=== PATIENT | female | born 1945 | race Caucasian/White ===

== ENCOUNTER 2021-11-18 21:23 | Inpatient (IN) ==
[2021-11-19] MEDS ORDERED: Isovue-370 500 ML BOTTLE IVP ONE (02:32)
[2021-11-19] MEDS ORDERED: Naloxone 0.4 MG/ML INJ IVP PRN (02:36)
[2021-11-19] MEDS ORDERED: *HR* Promethazine 25 MG/ML VIAL IM PRN (02:36)
[2021-11-19] MEDS ORDERED: Ondansetron 4 MG/2 ML VIAL IVP PRN (02:36)
[2021-11-19 03:00] LABS: Basophils % 0.3 %; Hematocrit 36.5 % (35.3-44.9); Hemoglobin 11.7 g/dL (11.5-15.4); Immature Granulocytes % 0.3 % (0-4); Lymphocytes # 1.3 K/mcL (0.6-4.6); Lymphocytes % 19.6 %; Mean Corpuscular HGB Conc 32.1 g/dL (31.6-35.5); Mean Corpuscular Hemoglobin 26.8 pg (28.0-33.3); Mean Corpuscular Volume 83.7 fL (83.0-100.0); Mean Platelet Volume 10.3 fL (9.4-12.4); Monocytes # 0.7 K/mcL (0.0-1.3); Monocytes % 10.4 %; Neutrophils # 4.6 K/mcL (1.6-8.9); Platelet Count 165 K/mcL (140-400); Red Blood Count 4.36 M/mcL (3.82-4.97); Red Cell Distribution Width 15.8 % (11.5-14.5); Segmented Neutrophils % 69.4 %; White Blood Count 6.6 K/mcL (4.3-11.1)
[2021-11-19] MEDS ORDERED: Perflutren Lipid Microsphere 1.3 ML in 0.9 % Sodium Chloride 8.7 ML IVP PRN (03:05)
[2021-11-19 03:07] LABS: INR 1.2; Prothrombin Time 13.2 Seconds (9.4-12.1)
[2021-11-19 03:09] LABS: VBG HCO3 30 mEq/L (21-27); VBG PCO2 53 mmHg (41-51); VBG PH 7.36 pH Units (7.32-7.42); VBG PO2 29 mmHg (25-50)
[2021-11-19 03:17] LABS: Albumin 3.4 g/dL (3.5-5.7); Albumin/Globulin Ratio 1.5 (1.1-2.2); Bilirubin,Total 0.3 mg/dL (0.3-1.0); Calcium 7.9 mg/dL (8.6-10.3); Globulin 2.2 g/dL (2.4-3.5); Magnesium 1.5 mg/dL (1.6-2.6); Phosphorous 3.3 mg/dL (2.7-4.5); Potassium 3.5 mEq/L (3.5-5.1); Total Protein 5.6 g/dL (6.4-8.9)
[2021-11-19 03:42] LABS: Troponin I 0.03 ng/mL (< 0.04)
[2021-11-19] MEDS: Ringers Solution, Lactated 1,000 ML IVC SCH ×2 (03:57→15:23)
[2021-11-19] MEDS: *HR* Enoxaparin 40 MG/0.4 ML SYRINGE SQ SCH (04:37)
[2021-11-19] MEDS ORDERED: Ropivacaine/PF 0.5% 49.24 ML, EPINEPHrine 0.5 MG, cloNIDine 0.08 MG, 0.9 % Sodium Chlor... INTRAART ONE (07:30)
[2021-11-19] MEDS ORDERED: Povidone-Iodine 45 ML, Sodium Chloride IRRigation 1,000 ML IR ONE (07:30)
[2021-11-19] MEDS ORDERED: Dexamethasone Sodium Phos/PF 10 MG/ML VIAL IVP SCH (09:00)
[2021-11-19 10:49] LABS: Bilirubin,Urine Negative (Negative); Blood,Urine Trace (Negative); Clarity,Urine Clear (Clear); Color,Urine Colorless (Yellow); Glucose,Urine (UA) Normal (Normal); Ketones,Urine 20 mg/dL (Negative); Leukocyte Esterase,Urine Negative (Negative); Nitrite,Urine Negative (Negative); Protein,Urine Trace mg/dL (Neg-Trace); Specific Gravity,Urine 1.018 (1.010-1.025); Urobilinogen,Urine Normal (Normal); WBC,Urine 0-3 per hpf (0-3)
[2021-11-19] MEDS ORDERED: *HR* Labetalol 20 MG/4 ML SYRINGE IVP PRN (13:02)
[2021-11-19] MEDS: amLODIPine 5 MG TABLET PO SCH (15:42)
[2021-11-19] MEDS: Ipratropium 1 PUFF INHALER IH SCH ×4 (15:55→23:59)
[2021-11-19] MEDS: cilostazoL 100 MG TABLET PO SCH (21:35)
[2021-11-19] MEDS ORDERED: Budesonide/Formoterol 160/4.5 1 PUFF INH IH SCH (22:00)
[2021-11-19] MEDS: Budesonide/Formoterol 80/4.5 1 PUFF INH IH SCH (22:36)
[2021-11-19] MEDS: Acetaminophen 325 MG TABLET PO PRN (23:07)
[2021-11-20 03:07] LABS: Alanine Aminotransferase 14 Units/L (7-52); Albumin 3.8 g/dL (3.5-5.7); Albumin/Globulin Ratio 1.4 (1.1-2.2); Alkaline Phosphatase 39 Units/L (34-104); Aspartate Amino Transferase 22 Units/L (13-39); BUN/Creatinine Ratio 20 (6-26); Bilirubin,Total 0.5 mg/dL (0.3-1.0); Blood Urea Nitrogen 15 mg/dL (8-23); C-Reactive Protein 79 mg/L (Less than 10); Calcium 8.8 mg/dL (8.6-10.3); Carbon Dioxide 26 mEq/L (23-29); Chloride 104 mEq/L (98-107); Globulin 2.8 g/dL (2.4-3.5); Glucose 166 mg/dL (70-105); Lactate Dehydrogenase 236 Units/L (140-271); Magnesium 1.6 mg/dL (1.6-2.6); Osmolality,Calculated 291 (280-300); Potassium 2.8 mEq/L (3.5-5.1); Sodium 138 mEq/L (136-145); Total Protein 6.6 g/dL (6.4-8.9); eGFR For African Americans > 60 (> 60); eGFR For Non-African Americans > 60 (> 60)
[2021-11-20 03:15] LABS: Ferritin 66 ng/mL (10-120)
[2021-11-20] MEDS: Ipratropium 1 PUFF INHALER IH SCH ×5 (04:27→19:54)
[2021-11-20] MEDS: *HR* Enoxaparin 40 MG/0.4 ML SYRINGE SQ SCH (05:03)
[2021-11-20] MEDS: Ringers Solution, Lactated 1,000 ML IVC SCH (05:03)
[2021-11-20 05:41] LABS: Hematocrit 40.8 % (35.3-44.9); Hemoglobin 13.7 g/dL (11.5-15.4); Immature Granulocytes % 0.4 % (0-4); Lymphocytes % 9.3 %; Mean Corpuscular HGB Conc 33.6 g/dL (31.6-35.5); Mean Corpuscular Hemoglobin 27.2 pg (28.0-33.3); Mean Corpuscular Volume 81.1 fL (83.0-100.0); Mean Platelet Volume 10.8 fL (9.4-12.4); Monocytes # 0.9 K/mcL (0.0-1.3); Monocytes % 8.5 %; Neutrophils # 8.8 K/mcL (1.6-8.9); Platelet Count 172 K/mcL (140-400); Red Blood Count 5.03 M/mcL (3.82-4.97); Red Cell Distribution Width 15.4 % (11.5-14.5); Segmented Neutrophils % 81.8 %; White Blood Count 10.8 K/mcL (4.3-11.1)
[2021-11-20] MEDS ORDERED: Isovue-370 500 ML BOTTLE IVP ONE (07:21)
[2021-11-20] MEDS: Budesonide/Formoterol 80/4.5 1 PUFF INH IH SCH ×2 (07:56→19:55)
[2021-11-20] MEDS: cilostazoL 100 MG TABLET PO SCH ×2 (08:16→21:02)
[2021-11-20] MEDS: amLODIPine 5 MG TABLET PO SCH (08:20)
[2021-11-20] MEDS ORDERED: amLODIPine 5 MG TABLET PO ONE (08:37)
[2021-11-20] MEDS ORDERED: amLODIPine 5 MG TABLET PO SCH (09:00)
[2021-11-20] MEDS ORDERED: Remdesivir 200 MG in 0.9 % Sodium Chloride 100 ML IVPB ONE (10:00)
[2021-11-20 14:52] LABS: Adenovirus F 40/41 PCR Not detected (Not detect); Astrovirus PCR Not detected (Not detect); C.difficile Toxin A/B Gene PCR Not detected (Not detect); Campylobacter by PCR Not detected (Not detect); Cryptosporidium by PCR Not detected (Not detect); Cyclospora cayetanensis PCR Not detected (Not detect); E. coli O157 by PCR Not detected (Not detect); Entamoeba histolytica PCR Not detected (Not detect); Enteroaggregative E.coli(EAEC) Not detected (Not detect); Enteropathogenic E.coli(EPEC) Not detected (Not detect); Enterotoxigenic E.coli (ETEC) Not detected (Not detect); Giardia lamblia PCR Not detected (Not detect); Norovirus GI/GII PCR Not detected (Not detect); Plesiomonas shigelloides PCR Not detected (Not detect); Rotavirus A PCR Not detected (Not detect); Salmonella PCR Not detected (Not detect); Sapovirus PCR Not detected (Not detect); Shig/EnteroinvasiveE coli EIEC Not detected (Not detect); Shigalike tox-prod E coli STEC Not detected (Not detect); Vibrio PCR Not detected (Not detect); Vibrio cholerae PCR Not detected (Not detect); Yersinia enterocolitica PCR Not detected (Not detect)
[2021-11-20] MEDS: Gabapentin 300 MG CAPSULE PO SCH ×2 (15:07→21:03)
[2021-11-20] MEDS ORDERED: CILOSTAZOL 50 MG PO SCH (21:00)
[2021-11-20] MEDS: *HR* HYDROcodone/Acet 10/325 mg TABLET PO PRN (23:58)
[2021-11-21] MEDS: Ipratropium 1 PUFF INHALER IH SCH ×6 (00:21→20:04)
[2021-11-21 01:27] LABS: Basophils % 0.1 %; Hematocrit 39.6 % (35.3-44.9); Hemoglobin 13.3 g/dL (11.5-15.4); Immature Granulocytes % 0.7 % (0-4); Lymphocytes # 0.8 K/mcL (0.6-4.6); Lymphocytes % 6.5 %; Mean Corpuscular HGB Conc 33.6 g/dL (31.6-35.5); Mean Corpuscular Hemoglobin 27.2 pg (28.0-33.3); Mean Platelet Volume 11.2 fL (9.4-12.4); Monocytes # 0.9 K/mcL (0.0-1.3); Monocytes % 7.4 %; Neutrophils # 10.8 K/mcL (1.6-8.9); Platelet Count 188 K/mcL (140-400); Red Blood Count 4.89 M/mcL (3.82-4.97); Red Cell Distribution Width 15.5 % (11.5-14.5); Segmented Neutrophils % 85.3 %; White Blood Count 12.7 K/mcL (4.3-11.1)
[2021-11-21 01:46] LABS: Alanine Aminotransferase 17 Units/L (7-52); Albumin 3.7 g/dL (3.5-5.7); Albumin/Globulin Ratio 1.4 (1.1-2.2); Alkaline Phosphatase 37 Units/L (34-104); Aspartate Amino Transferase 23 Units/L (13-39); BUN/Creatinine Ratio 23 (6-26); Bilirubin,Total 0.5 mg/dL (0.3-1.0); Blood Urea Nitrogen 17 mg/dL (8-23); Calcium 8.7 mg/dL (8.6-10.3); Carbon Dioxide 27 mEq/L (23-29); Chloride 103 mEq/L (98-107); Globulin 2.6 g/dL (2.4-3.5); Glucose 129 mg/dL (70-105); Osmolality,Calculated 287 (280-300); Potassium 2.9 mEq/L (3.5-5.1); Sodium 137 mEq/L (136-145); Total Protein 6.3 g/dL (6.4-8.9); eGFR For African Americans > 60 (> 60); eGFR For Non-African Americans > 60 (> 60)
[2021-11-21] MEDS: *HR* Enoxaparin 40 MG/0.4 ML SYRINGE SQ SCH (05:18)
[2021-11-21] MEDS: cilostazoL 100 MG TABLET PO SCH ×2 (07:30→21:16)
[2021-11-21] MEDS: Gabapentin 300 MG CAPSULE PO SCH ×3 (07:30→21:16)
[2021-11-21] MEDS: amLODIPine 5 MG TABLET PO SCH (07:32)
[2021-11-21] MEDS ORDERED: Magnesium Sulfate 1 GM/102 ML PIGGYBACK IVPB ONE (07:51)
[2021-11-21] MEDS: *HR* HYDROcodone/Acet 10/325 mg TABLET PO PRN (08:00)
[2021-11-21] MEDS: hydroCHLOROthiazide 25 MG TABLET PO SCH (08:14)
[2021-11-21] MEDS: Remdesivir 100 MG in 0.9 % Sodium Chloride 100 ML IVPB SCH (09:47)
[2021-11-21] MEDS: *HR* OxyCODONE Immed Rel 5 MG TABLET PO PRN ×2 (10:46→21:20)
[2021-11-21] MEDS: Fluticasone Propionate Nasal 50 MCG/SPRAY BOTTLE NS SCH (11:12)
[2021-11-21] MEDS: Budesonide/Formoterol 80/4.5 1 PUFF INH IH SCH ×2 (11:45→20:04)
[2021-11-21] MEDS: traZODone 50 MG TABLET PO PRN (21:20)
[2021-11-22] MEDS: Ipratropium 1 PUFF INHALER IH SCH ×7 (00:05→23:36)
[2021-11-22] MEDS: *HR* OxyCODONE Immed Rel 5 MG TABLET PO PRN ×3 (05:43→20:10)
[2021-11-22] MEDS: *HR* Enoxaparin 40 MG/0.4 ML SYRINGE SQ SCH (05:44)
[2021-11-22 06:30] LABS: Basophils % 0.2 %; Hematocrit 37.9 % (35.3-44.9); Hemoglobin 12.1 g/dL (11.5-15.4); Immature Granulocytes % 0.7 % (0-4); Lymphocytes # 0.8 K/mcL (0.6-4.6); Lymphocytes % 6.8 %; Mean Corpuscular HGB Conc 31.9 g/dL (31.6-35.5); Mean Corpuscular Hemoglobin 26.5 pg (28.0-33.3); Mean Corpuscular Volume 82.9 fL (83.0-100.0); Mean Platelet Volume 11.3 fL (9.4-12.4); Monocytes # 1.2 K/mcL (0.0-1.3); Monocytes % 9.4 %; Neutrophils # 10.3 K/mcL (1.6-8.9); Platelet Count 181 K/mcL (140-400); Red Blood Count 4.57 M/mcL (3.82-4.97); Red Cell Distribution Width 15.9 % (11.5-14.5); Segmented Neutrophils % 82.9 %; White Blood Count 12.4 K/mcL (4.3-11.1)
[2021-11-22 07:03] LABS: Alanine Aminotransferase 15 Units/L (7-52); Albumin 3.6 g/dL (3.5-5.7); Albumin/Globulin Ratio 1.4 (1.1-2.2); Alkaline Phosphatase 38 Units/L (34-104); Aspartate Amino Transferase 21 Units/L (13-39); BUN/Creatinine Ratio 26 (6-26); Bilirubin,Total 0.4 mg/dL (0.3-1.0); Blood Urea Nitrogen 23 mg/dL (8-23); Calcium 8.8 mg/dL (8.6-10.3); Carbon Dioxide 26 mEq/L (23-29); Chloride 105 mEq/L (98-107); Globulin 2.5 g/dL (2.4-3.5); Glucose 155 mg/dL (70-105); Osmolality,Calculated 297 (280-300); Sodium 140 mEq/L (136-145); Total Protein 6.1 g/dL (6.4-8.9); eGFR For African Americans > 60 (> 60); eGFR For Non-African Americans > 60 (> 60)
[2021-11-22] MEDS: Budesonide/Formoterol 80/4.5 1 PUFF INH IH SCH ×2 (08:30→20:25)
[2021-11-22] MEDS: hydroCHLOROthiazide 25 MG TABLET PO SCH (09:52)
[2021-11-22] MEDS: cilostazoL 100 MG TABLET PO SCH ×2 (09:53→20:09)
[2021-11-22] MEDS: Acetaminophen 325 MG TABLET PO PRN (09:53)
[2021-11-22] MEDS: amLODIPine 5 MG TABLET PO SCH (09:54)
[2021-11-22] MEDS: Gabapentin 300 MG CAPSULE PO SCH ×3 (09:54→20:08)
[2021-11-22] MEDS: Fluticasone Propionate Nasal 50 MCG/SPRAY BOTTLE NS SCH (09:55)
[2021-11-22] MEDS: Remdesivir 100 MG in 0.9 % Sodium Chloride 100 ML IVPB SCH (09:56)
[2021-11-23] MEDS: Ipratropium 1 PUFF INHALER IH SCH ×6 (04:08→23:20)
[2021-11-23] MEDS: *HR* OxyCODONE Immed Rel 5 MG TABLET PO PRN ×2 (04:16→20:48)
[2021-11-23 05:10] LABS: Basophils % 0.1 %; Hematocrit 36.4 % (35.3-44.9); Hemoglobin 11.8 g/dL (11.5-15.4); Immature Granulocytes % 0.5 % (0-4); Lymphocytes # 0.8 K/mcL (0.6-4.6); Mean Corpuscular HGB Conc 32.4 g/dL (31.6-35.5); Mean Corpuscular Hemoglobin 26.9 pg (28.0-33.3); Mean Corpuscular Volume 83.1 fL (83.0-100.0); Monocytes # 0.9 K/mcL (0.0-1.3); Monocytes % 7.8 %; Neutrophils # 9.7 K/mcL (1.6-8.9); Platelet Count 187 K/mcL (140-400); Red Blood Count 4.38 M/mcL (3.82-4.97); Red Cell Distribution Width 15.5 % (11.5-14.5); Segmented Neutrophils % 84.6 %; White Blood Count 11.5 K/mcL (4.3-11.1)
[2021-11-23] MEDS: *HR* Enoxaparin 40 MG/0.4 ML SYRINGE SQ SCH (05:15)
[2021-11-23 05:30] LABS: Alanine Aminotransferase 16 Units/L (7-52); Albumin 3.4 g/dL (3.5-5.7); Albumin/Globulin Ratio 1.4 (1.1-2.2); Alkaline Phosphatase 39 Units/L (34-104); Aspartate Amino Transferase 16 Units/L (13-39); BUN/Creatinine Ratio 32 (6-26); Bilirubin,Total 0.4 mg/dL (0.3-1.0); Blood Urea Nitrogen 27 mg/dL (8-23); Calcium 9.1 mg/dL (8.6-10.3); Carbon Dioxide 30 mEq/L (23-29); Chloride 104 mEq/L (98-107); Globulin 2.5 g/dL (2.4-3.5); Glucose 171 mg/dL (70-105); Osmolality,Calculated 299 (280-300); Sodium 140 mEq/L (136-145); Total Protein 5.9 g/dL (6.4-8.9); eGFR For African Americans > 60 (> 60); eGFR For Non-African Americans > 60 (> 60)
[2021-11-23] MEDS: Budesonide/Formoterol 80/4.5 1 PUFF INH IH SCH ×2 (08:05→19:39)
[2021-11-23] MEDS: Fluticasone Propionate Nasal 50 MCG/SPRAY BOTTLE NS SCH (08:32)
[2021-11-23] MEDS: amLODIPine 5 MG TABLET PO SCH (08:32)
[2021-11-23] MEDS: cilostazoL 100 MG TABLET PO SCH ×2 (08:32→20:46)
[2021-11-23] MEDS: Gabapentin 300 MG CAPSULE PO SCH ×3 (08:32→20:47)
[2021-11-23] MEDS: hydroCHLOROthiazide 25 MG TABLET PO SCH (08:32)
[2021-11-23] MEDS: Remdesivir 100 MG in 0.9 % Sodium Chloride 100 ML IVPB SCH (10:56)
[2021-11-23] MEDS ORDERED: Dextrose Gel 15 GM/37.5 ML TUBE PO PRN ×2 (16:56)
[2021-11-23] MEDS ORDERED: *HR* Dextrose 50 % in Water (Syg) 50 ML SYRINGE IVP PRN (16:56)
[2021-11-23] MEDS ORDERED: D5% in Water 1,000 ML IVC PRN (16:56)
[2021-11-23] MEDS: Insulin LISPRO 300 UNITS/3 ML VIAL SUBQ SCH (20:47)
[2021-11-24] MEDS: Ipratropium 1 PUFF INHALER IH SCH ×5 (03:56→20:10)
[2021-11-24 05:43] LABS: Basophils % 0.2 %; Hematocrit 37.7 % (35.3-44.9); Hemoglobin 12.4 g/dL (11.5-15.4); Immature Granulocytes % 0.7 % (0-4); Lymphocytes # 1.2 K/mcL (0.6-4.6); Lymphocytes % 9.8 %; Mean Corpuscular HGB Conc 32.9 g/dL (31.6-35.5); Mean Corpuscular Hemoglobin 26.6 pg (28.0-33.3); Mean Corpuscular Volume 80.7 fL (83.0-100.0); Monocytes # 1.1 K/mcL (0.0-1.3); Monocytes % 9.3 %; Neutrophils # 9.4 K/mcL (1.6-8.9); Platelet Count 214 K/mcL (140-400); Red Blood Count 4.67 M/mcL (3.82-4.97); Red Cell Distribution Width 15.3 % (11.5-14.5); White Blood Count 11.8 K/mcL (4.3-11.1)
[2021-11-24 05:47] LABS: Alanine Aminotransferase 17 Units/L (7-52); Albumin 3.4 g/dL (3.5-5.7); Albumin/Globulin Ratio 1.3 (1.1-2.2); Alkaline Phosphatase 40 Units/L (34-104); Aspartate Amino Transferase 19 Units/L (13-39); BUN/Creatinine Ratio 35 (6-26); Bilirubin,Total 0.5 mg/dL (0.3-1.0); Blood Urea Nitrogen 28 mg/dL (8-23); C-Reactive Protein 20 mg/L (Less than 10); Carbon Dioxide 28 mEq/L (23-29); Chloride 104 mEq/L (98-107); Globulin 2.7 g/dL (2.4-3.5); Glucose 143 mg/dL (70-105); Lactate Dehydrogenase 227 Units/L (140-271); Magnesium 1.3 mg/dL (1.6-2.6); Osmolality,Calculated 298 (280-300); Potassium 3.5 mEq/L (3.5-5.1); Sodium 140 mEq/L (136-145); Total Protein 6.1 g/dL (6.4-8.9); eGFR For African Americans > 60 (> 60); eGFR For Non-African Americans > 60 (> 60)
[2021-11-24] MEDS: *HR* Enoxaparin 40 MG/0.4 ML SYRINGE SQ SCH (05:51)
[2021-11-24 06:05] LABS: Ferritin 59 ng/mL (10-120)
[2021-11-24] MEDS: *HR* OxyCODONE Immed Rel 5 MG TABLET PO PRN ×3 (06:09→21:22)
[2021-11-24] MEDS: Budesonide/Formoterol 80/4.5 1 PUFF INH IH SCH ×2 (08:06→20:10)
[2021-11-24] MEDS: Insulin LISPRO 300 UNITS/3 ML VIAL SUBQ SCH ×4 (08:31→21:21)
[2021-11-24] MEDS: cilostazoL 100 MG TABLET PO SCH ×2 (08:38→21:22)
[2021-11-24] MEDS: Gabapentin 300 MG CAPSULE PO SCH ×3 (08:39→21:22)
[2021-11-24] MEDS: amLODIPine 5 MG TABLET PO SCH (08:39)
[2021-11-24] MEDS: hydroCHLOROthiazide 25 MG TABLET PO SCH (08:39)
[2021-11-24] MEDS: Remdesivir 100 MG in 0.9 % Sodium Chloride 100 ML IVPB SCH (08:39)
[2021-11-24] MEDS: Fluticasone Propionate Nasal 50 MCG/SPRAY BOTTLE NS SCH (08:43)
[2021-11-25] MEDS: Ipratropium 1 PUFF INHALER IH SCH ×7 (00:13→23:19)
[2021-11-25] MEDS: *HR* Enoxaparin 40 MG/0.4 ML SYRINGE SQ SCH ×2 (05:20→05:26)
[2021-11-25 05:53] LABS: Basophils % 0.2 %; Hematocrit 37.4 % (35.3-44.9); Hemoglobin 12.2 g/dL (11.5-15.4); Immature Granulocytes % 0.9 % (0-4); Lymphocytes % 8.8 %; Mean Corpuscular HGB Conc 32.6 g/dL (31.6-35.5); Mean Corpuscular Hemoglobin 26.3 pg (28.0-33.3); Mean Corpuscular Volume 80.6 fL (83.0-100.0); Mean Platelet Volume 11.6 fL (9.4-12.4); Monocytes # 1.1 K/mcL (0.0-1.3); Monocytes % 10.3 %; Neutrophils # 8.6 K/mcL (1.6-8.9); Platelet Count 241 K/mcL (140-400); Red Blood Count 4.64 M/mcL (3.82-4.97); Red Cell Distribution Width 15.1 % (11.5-14.5); Segmented Neutrophils % 79.8 %; White Blood Count 10.8 K/mcL (4.3-11.1)
[2021-11-25 06:03] LABS: Estimated Average Glucose 157 mg/dl; Hemoglobin A1C 7.1 %
[2021-11-25 06:36] LABS: Alanine Aminotransferase 24 Units/L (7-52); Albumin 3.4 g/dL (3.5-5.7); Albumin/Globulin Ratio 1.3 (1.1-2.2); Alkaline Phosphatase 44 Units/L (34-104); Aspartate Amino Transferase 19 Units/L (13-39); BUN/Creatinine Ratio 33 (6-26); Bilirubin,Total 0.5 mg/dL (0.3-1.0); Blood Urea Nitrogen 29 mg/dL (8-23); Carbon Dioxide 31 mEq/L (23-29); Chloride 99 mEq/L (98-107); Globulin 2.6 g/dL (2.4-3.5); Glucose 176 mg/dL (70-105); Osmolality,Calculated 294 (280-300); Potassium 3.6 mEq/L (3.5-5.1); Sodium 137 mEq/L (136-145); eGFR For African Americans > 60 (> 60); eGFR For Non-African Americans > 60 (> 60)
[2021-11-25] MEDS: Budesonide/Formoterol 80/4.5 1 PUFF INH IH SCH ×2 (07:41→19:59)
[2021-11-25] MEDS: Insulin LISPRO 300 UNITS/3 ML VIAL SUBQ SCH ×4 (09:38→20:18)
[2021-11-25] MEDS: Gabapentin 300 MG CAPSULE PO SCH ×3 (09:38→20:18)
[2021-11-25] MEDS: *HR* OxyCODONE Immed Rel 5 MG TABLET PO PRN (09:38)
[2021-11-25] MEDS: Fluticasone Propionate Nasal 50 MCG/SPRAY BOTTLE NS SCH (09:38)
[2021-11-25] MEDS: hydroCHLOROthiazide 25 MG TABLET PO SCH (09:38)
[2021-11-25] MEDS: cilostazoL 100 MG TABLET PO SCH ×2 (09:39→20:17)
[2021-11-25] MEDS: amLODIPine 5 MG TABLET PO SCH (09:39)
[2021-11-26 02:16] LABS: Basophils % 0.3 %; Hematocrit 39.6 % (35.3-44.9); Hemoglobin 12.6 g/dL (11.5-15.4); Immature Granulocytes % 1.3 % (0-4); Lymphocytes # 0.7 K/mcL (0.6-4.6); Lymphocytes % 6.2 %; Mean Corpuscular HGB Conc 31.8 g/dL (31.6-35.5); Mean Corpuscular Volume 81.8 fL (83.0-100.0); Mean Platelet Volume 11.1 fL (9.4-12.4); Monocytes # 1.3 K/mcL (0.0-1.3); Monocytes % 10.6 %; Neutrophils # 9.8 K/mcL (1.6-8.9); Platelet Count 274 K/mcL (140-400); Red Blood Count 4.84 M/mcL (3.82-4.97); Red Cell Distribution Width 15.2 % (11.5-14.5); Segmented Neutrophils % 81.6 %
[2021-11-26 02:30] LABS: BUN/Creatinine Ratio 30 (6-26); Blood Urea Nitrogen 30 mg/dL (8-23); Carbon Dioxide 30 mEq/L (23-29); Chloride 101 mEq/L (98-107); Glucose 184 mg/dL (70-105); Osmolality,Calculated 297 (280-300); Potassium 3.7 mEq/L (3.5-5.1); Sodium 138 mEq/L (136-145); eGFR For African Americans > 60 (> 60); eGFR For Non-African Americans 55 (> 60)
[2021-11-26] MEDS: Ipratropium 1 PUFF INHALER IH SCH ×5 (04:15→20:36)
[2021-11-26] MEDS: *HR* Enoxaparin 40 MG/0.4 ML SYRINGE SQ SCH (05:45)
[2021-11-26] MEDS: Budesonide/Formoterol 80/4.5 1 PUFF INH IH SCH ×2 (07:40→20:37)
[2021-11-26] MEDS: Gabapentin 300 MG CAPSULE PO SCH ×3 (08:03→20:05)
[2021-11-26] MEDS: cilostazoL 100 MG TABLET PO SCH ×2 (08:03→20:06)
[2021-11-26] MEDS: amLODIPine 5 MG TABLET PO SCH (08:03)
[2021-11-26] MEDS: *HR* OxyCODONE Immed Rel 5 MG TABLET PO PRN (08:03)
[2021-11-26] MEDS: hydroCHLOROthiazide 25 MG TABLET PO SCH (08:03)
[2021-11-26] MEDS: Fluticasone Propionate Nasal 50 MCG/SPRAY BOTTLE NS SCH (08:04)
[2021-11-26] MEDS: Insulin LISPRO 300 UNITS/3 ML VIAL SUBQ SCH ×4 (08:04→20:07)
[2021-11-26] MEDS ORDERED: *HR* OxyCODONE Immed Rel 5 MG TABLET PO ONE (12:24)
[2021-11-26] MEDS: *HR* HYDROcodone/Acet 10/325 mg TABLET PO PRN (18:14)
[2021-11-26] MEDS: Ringers Solution, Lactated 1,000 ML IVC SCH (18:14)
[2021-11-27] MEDS: Ipratropium 1 PUFF INHALER IH SCH ×6 (00:10→21:06)
[2021-11-27] MEDS: *HR* HYDROcodone/Acet 10/325 mg TABLET PO PRN ×3 (00:53→21:43)
[2021-11-27 04:45] LABS: Basophils % 0.3 %; Eosinophils % 0.1 %; Hematocrit 36.9 % (35.3-44.9); Hemoglobin 11.7 g/dL (11.5-15.4); Immature Granulocytes % 1.4 % (0-4); Lymphocytes % 9.2 %; Mean Corpuscular HGB Conc 31.7 g/dL (31.6-35.5); Mean Corpuscular Hemoglobin 26.2 pg (28.0-33.3); Mean Corpuscular Volume 82.6 fL (83.0-100.0); Mean Platelet Volume 11.5 fL (9.4-12.4); Monocytes # 1.2 K/mcL (0.0-1.3); Monocytes % 11.6 %; Neutrophils # 8.2 K/mcL (1.6-8.9); Platelet Count 292 K/mcL (140-400); Red Blood Count 4.47 M/mcL (3.82-4.97); Red Cell Distribution Width 15.4 % (11.5-14.5); Segmented Neutrophils % 77.4 %; White Blood Count 10.6 K/mcL (4.3-11.1)
[2021-11-27 05:08] LABS: Alanine Aminotransferase 21 Units/L (7-52); Albumin 3.2 g/dL (3.5-5.7); Albumin/Globulin Ratio 1.4 (1.1-2.2); Alkaline Phosphatase 46 Units/L (34-104); Aspartate Amino Transferase 14 Units/L (13-39); BUN/Creatinine Ratio 35 (6-26); Bilirubin,Total 0.4 mg/dL (0.3-1.0); Blood Urea Nitrogen 34 mg/dL (8-23); Calcium 8.8 mg/dL (8.6-10.3); Carbon Dioxide 29 mEq/L (23-29); Chloride 101 mEq/L (98-107); Globulin 2.3 g/dL (2.4-3.5); Glucose 263 mg/dL (70-105); Osmolality,Calculated 301 (280-300); Sodium 137 mEq/L (136-145); Total Protein 5.5 g/dL (6.4-8.9); eGFR For African Americans > 60 (> 60); eGFR For Non-African Americans 57 (> 60)
[2021-11-27] MEDS: *HR* Enoxaparin 40 MG/0.4 ML SYRINGE SQ SCH (05:31)
[2021-11-27] MEDS ORDERED: TOTAL JOINT MIXTURE (100ML) INTRAART ONE (06:00)
[2021-11-27] MEDS ORDERED: Povidone-Iodine 45 ML, Sodium Chloride IRRigation 1,000 ML IR ONE (06:00)
[2021-11-27] MEDS: Ringers Solution, Lactated 1,000 ML IVC SCH ×2 (06:25→15:41)
[2021-11-27] MEDS: Budesonide/Formoterol 80/4.5 1 PUFF INH IH SCH ×2 (07:21→21:06)
[2021-11-27] MEDS: Insulin LISPRO 300 UNITS/3 ML VIAL SUBQ SCH ×4 (07:37→20:25)
[2021-11-27] MEDS: amLODIPine 5 MG TABLET PO SCH (07:59)
[2021-11-27] MEDS: hydroCHLOROthiazide 25 MG TABLET PO SCH (07:59)
[2021-11-27] MEDS: Gabapentin 300 MG CAPSULE PO SCH ×3 (07:59→20:21)
[2021-11-27] MEDS: cilostazoL 100 MG TABLET PO SCH ×2 (08:01→20:21)
[2021-11-27] MEDS: Fluticasone Propionate Nasal 50 MCG/SPRAY BOTTLE NS SCH (08:02)
[2021-11-27] MEDS ORDERED: *HR* HYDROmorphone PF 0.5 MG/0.5 ML SYRINGE IVP PRN (08:42)
[2021-11-27] MEDS ORDERED: *HR* FentaNYL (PF) 100 MCG/2 ML VIAL IVP PRN (08:42)
[2021-11-27] MEDS ORDERED: Albuterol 2.5 MG/3 ML NEBULIZER IH PRN (08:42)
[2021-11-27] MEDS ORDERED: *HR* FentaNYL (PF) 100 MCG/2 ML VIAL ONE (10:48)
[2021-11-27] MEDS ORDERED: *HR* Propofol 200 MG/20 ML VIAL IVP ONE (10:48)
[2021-11-27] MEDS ORDERED: Lidocaine -MPF 2% 5 ML VIAL ONE (10:50)
[2021-11-27] MEDS ORDERED: Vancomycin 1,000 MG VIAL ONE (10:52)
[2021-11-27] MEDS ORDERED: *HR* Succinylcholine 200 MG/10 ML VIAL IVP ONE (11:14)
[2021-11-27] MEDS ORDERED: Ondansetron 4 MG/2 ML VIAL ONE (11:14)
[2021-11-27] MEDS ORDERED: *HR* Vasopressin 20 UNIT/ML VIAL ONE (11:15)
[2021-11-27] MEDS ORDERED: Albumin Human 5% 25.0 GM/500 ML IV.SOLN ONE (11:15)
[2021-11-27] MEDS ORDERED: Heparin 1,000 UNITS/500 mL 500 ML ONE (11:28)
[2021-11-27] MEDS ORDERED: *HR* Rocuronium Bromide 50 MG/5 ML VIAL ONE (12:45)
[2021-11-27] MEDS ORDERED: *HR* Phenylephrine 10 MG/ML VIAL ONE (12:49)
[2021-11-27] MEDS ORDERED: Acetaminophen IV 1,000 MG/100 ML BAG IVPB ONE (13:07)
[2021-11-27] MEDS ORDERED: Tranexamic Acid 1,000 MG/10 ML VIAL ONE (13:11)
[2021-11-27] MEDS ORDERED: MOM Conc 10 ML UD.LIQ PO PRN (14:01)
[2021-11-27] MEDS ORDERED: Sennosides 8.6 MG TABLET PO PRN (14:01)
[2021-11-27] MEDS: Ascorbic Acid 500 MG TABLET PO SCH (17:07)
[2021-11-27] MEDS: CeFAZolin 2 GM/120 ML BAG IVPB SCH (20:19)
[2021-11-28] MEDS: Ipratropium 1 PUFF INHALER IH SCH ×7 (00:03→19:52)
[2021-11-28] MEDS: Ringers Solution, Lactated 1,000 ML IVC SCH (02:18)
[2021-11-28 03:21] LABS: Basophils % 0.1 %; Immature Granulocytes % 1.3 % (0-4); Lymphocytes # 0.6 K/mcL (0.6-4.6); Lymphocytes % 4.2 %; Mean Corpuscular HGB Conc 31.3 g/dL (31.6-35.5); Mean Corpuscular Hemoglobin 26.4 pg (28.0-33.3); Mean Corpuscular Volume 84.3 fL (83.0-100.0); Mean Platelet Volume 11.6 fL (9.4-12.4); Monocytes # 1.5 K/mcL (0.0-1.3); Monocytes % 11.3 %; Neutrophils # 11.2 K/mcL (1.6-8.9); Platelet Count 270 K/mcL (140-400); Red Blood Count 3.56 M/mcL (3.82-4.97); Red Cell Distribution Width 15.4 % (11.5-14.5); Segmented Neutrophils % 83.1 %; White Blood Count 13.5 K/mcL (4.3-11.1)
[2021-11-28 03:26] LABS: Hemoglobin 9.4 g/dL (11.5-15.4)
[2021-11-28 03:33] LABS: Calcium 8.1 mg/dL (8.6-10.3); Magnesium 1.6 mg/dL (1.6-2.6); Phosphorous 3.7 mg/dL (2.7-4.5)
[2021-11-28] MEDS: CeFAZolin 2 GM/120 ML BAG IVPB SCH (04:00)
[2021-11-28] MEDS: *HR* HYDROcodone/Acet 10/325 mg TABLET PO PRN ×2 (04:01→19:54)
[2021-11-28] MEDS: *HR* Enoxaparin 40 MG/0.4 ML SYRINGE SQ SCH (05:00)
[2021-11-28] MEDS: Budesonide/Formoterol 80/4.5 1 PUFF INH IH SCH ×2 (08:02→19:52)
[2021-11-28] MEDS: Insulin LISPRO 300 UNITS/3 ML VIAL SUBQ SCH ×4 (09:55→21:07)
[2021-11-28] MEDS: Insulin DETEMIR 100 UNIT/ML X5UNITS SUBQ SCH ×2 (09:55→21:37)
[2021-11-28] MEDS: Gabapentin 300 MG CAPSULE PO SCH ×3 (09:57→19:55)
[2021-11-28] MEDS: amLODIPine 5 MG TABLET PO SCH (09:58)
[2021-11-28] MEDS: Multivit/Ca/Min/Fe/FA 1 TAB TABLET PO SCH (09:58)
[2021-11-28] MEDS: cilostazoL 100 MG TABLET PO SCH ×2 (09:58→19:54)
[2021-11-28] MEDS: hydroCHLOROthiazide 25 MG TABLET PO SCH (10:00)
[2021-11-28] MEDS: Fluticasone Propionate Nasal 50 MCG/SPRAY BOTTLE NS SCH (10:01)
[2021-11-28] MEDS: Ascorbic Acid 500 MG TABLET PO SCH ×2 (10:10→16:48)
[2021-11-28] MEDS: traZODone 50 MG TABLET PO PRN (19:54)
[2021-11-29] MEDS: Ipratropium 1 PUFF INHALER IH SCH ×7 (00:13→23:29)
[2021-11-29 01:21] LABS: Basophils % 0.1 %; Hematocrit 28.5 % (35.3-44.9); Immature Granulocytes % 1.1 % (0-4); Lymphocytes # 1.4 K/mcL (0.6-4.6); Lymphocytes % 8.9 %; Mean Corpuscular HGB Conc 31.6 g/dL (31.6-35.5); Mean Corpuscular Hemoglobin 26.3 pg (28.0-33.3); Mean Corpuscular Volume 83.3 fL (83.0-100.0); Mean Platelet Volume 11.2 fL (9.4-12.4); Monocytes # 1.8 K/mcL (0.0-1.3); Monocytes % 10.9 %; Neutrophils # 12.7 K/mcL (1.6-8.9); Platelet Count 275 K/mcL (140-400); Red Blood Count 3.42 M/mcL (3.82-4.97); Red Cell Distribution Width 15.4 % (11.5-14.5); White Blood Count 16.1 K/mcL (4.3-11.1)
[2021-11-29 01:38] LABS: BUN/Creatinine Ratio 27 (6-26); Blood Urea Nitrogen 29 mg/dL (8-23); Calcium 8.1 mg/dL (8.6-10.3); Carbon Dioxide 31 mEq/L (23-29); Chloride 103 mEq/L (98-107); Glucose 177 mg/dL (70-105); Magnesium 1.5 mg/dL (1.6-2.6); Osmolality,Calculated 298 (280-300); Phosphorous 2.9 mg/dL (2.7-4.5); Potassium 3.8 mEq/L (3.5-5.1); Sodium 139 mEq/L (136-145); eGFR For African Americans > 60 (> 60); eGFR For Non-African Americans 50 (> 60)
[2021-11-29] MEDS: *HR* Enoxaparin 40 MG/0.4 ML SYRINGE SQ SCH (05:06)
[2021-11-29] MEDS: *HR* HYDROcodone/Acet 10/325 mg TABLET PO PRN ×2 (05:06→20:10)
[2021-11-29] MEDS: Budesonide/Formoterol 80/4.5 1 PUFF INH IH SCH ×2 (08:08→19:20)
[2021-11-29] MEDS: hydroCHLOROthiazide 25 MG TABLET PO SCH (09:06)
[2021-11-29] MEDS: Gabapentin 300 MG CAPSULE PO SCH ×3 (09:06→19:59)
[2021-11-29] MEDS: Insulin DETEMIR 100 UNIT/ML X5UNITS SUBQ SCH ×2 (09:07→20:00)
[2021-11-29] MEDS: Ascorbic Acid 500 MG TABLET PO SCH ×2 (09:08→17:36)
[2021-11-29] MEDS: Fluticasone Propionate Nasal 50 MCG/SPRAY BOTTLE NS SCH (09:08)
[2021-11-29] MEDS: Insulin LISPRO 300 UNITS/3 ML VIAL SUBQ SCH ×4 (09:09→20:01)
[2021-11-29] MEDS: cilostazoL 100 MG TABLET PO SCH ×2 (09:10→19:58)
[2021-11-29] MEDS: amLODIPine 5 MG TABLET PO SCH (09:10)
[2021-11-29] MEDS: Multivit/Ca/Min/Fe/FA 1 TAB TABLET PO SCH (09:10)
[2021-11-29] MEDS ORDERED: Acetaminophen 325 MG TABLET PO PRN (11:52)
[2021-11-30] MEDS: Ipratropium 1 PUFF INHALER IH SCH ×6 (03:21→23:27)
[2021-11-30 04:42] LABS: Basophils % 0.2 %; Eosinophils % 0.2 %; Hematocrit 26.7 % (35.3-44.9); Hemoglobin 8.6 g/dL (11.5-15.4); Immature Granulocytes % 1.3 % (0-4); Lymphocytes # 1.6 K/mcL (0.6-4.6); Lymphocytes % 12.7 %; Mean Corpuscular HGB Conc 32.2 g/dL (31.6-35.5); Mean Corpuscular Hemoglobin 26.9 pg (28.0-33.3); Mean Corpuscular Volume 83.4 fL (83.0-100.0); Mean Platelet Volume 11.1 fL (9.4-12.4); Monocytes # 1.4 K/mcL (0.0-1.3); Monocytes % 10.4 %; Neutrophils # 9.8 K/mcL (1.6-8.9); Platelet Count 285 K/mcL (140-400); Red Cell Distribution Width 15.6 % (11.5-14.5); Segmented Neutrophils % 75.2 %
[2021-11-30 04:59] LABS: BUN/Creatinine Ratio 27 (6-26); Blood Urea Nitrogen 25 mg/dL (8-23); Calcium 8.5 mg/dL (8.6-10.3); Carbon Dioxide 30 mEq/L (23-29); Chloride 103 mEq/L (98-107); Glucose 187 mg/dL (70-105); Magnesium 1.7 mg/dL (1.6-2.6); Osmolality,Calculated 293 (280-300); Phosphorous 2.8 mg/dL (2.7-4.5); Potassium 3.6 mEq/L (3.5-5.1); Sodium 137 mEq/L (136-145); eGFR For African Americans > 60 (> 60); eGFR For Non-African Americans 58 (> 60)
[2021-11-30] MEDS: *HR* Enoxaparin 40 MG/0.4 ML SYRINGE SQ SCH (05:22)
[2021-11-30] MEDS: Insulin LISPRO 300 UNITS/3 ML VIAL SUBQ SCH ×4 (07:10→21:23)
[2021-11-30] MEDS: Budesonide/Formoterol 80/4.5 1 PUFF INH IH SCH ×2 (07:53→19:14)
[2021-11-30] MEDS: amLODIPine 5 MG TABLET PO SCH (09:16)
[2021-11-30] MEDS: Multivit/Ca/Min/Fe/FA 1 TAB TABLET PO SCH (09:16)
[2021-11-30] MEDS: Ascorbic Acid 500 MG TABLET PO SCH ×2 (09:16→16:47)
[2021-11-30] MEDS: cilostazoL 100 MG TABLET PO SCH ×2 (09:16→21:24)
[2021-11-30] MEDS: *HR* HYDROcodone/Acet 10/325 mg TABLET PO PRN ×2 (09:17→17:35)
[2021-11-30] MEDS: Gabapentin 300 MG CAPSULE PO SCH ×3 (09:17→21:24)
[2021-11-30] MEDS: hydroCHLOROthiazide 25 MG TABLET PO SCH (09:17)
[2021-11-30] MEDS: Insulin DETEMIR 100 UNIT/ML X5UNITS SUBQ SCH ×2 (09:22→21:23)
[2021-11-30] MEDS: Fluticasone Propionate Nasal 50 MCG/SPRAY BOTTLE NS SCH (09:23)
[2021-11-30] MEDS: traZODone 50 MG TABLET PO PRN (21:24)
[2021-12-01] MEDS: Ipratropium 1 PUFF INHALER IH SCH ×6 (03:33→23:41)
[2021-12-01] MEDS: *HR* Enoxaparin 40 MG/0.4 ML SYRINGE SQ SCH (05:21)
[2021-12-01 06:38] LABS: Basophils % 0.2 %; Eosinophils # 0.1 K/mcL (0.0-0.6); Eosinophils % 0.5 %; Hemoglobin 8.1 g/dL (11.5-15.4); Immature Granulocytes % 0.9 % (0-4); Lymphocytes # 1.5 K/mcL (0.6-4.6); Lymphocytes % 11.8 %; Mean Corpuscular HGB Conc 31.2 g/dL (31.6-35.5); Mean Corpuscular Hemoglobin 26.3 pg (28.0-33.3); Mean Corpuscular Volume 84.4 fL (83.0-100.0); Monocytes # 1.2 K/mcL (0.0-1.3); Monocytes % 9.7 %; Neutrophils # 9.6 K/mcL (1.6-8.9); Platelet Count 278 K/mcL (140-400); Red Blood Count 3.08 M/mcL (3.82-4.97); Red Cell Distribution Width 15.9 % (11.5-14.5); Segmented Neutrophils % 76.9 %; White Blood Count 12.4 K/mcL (4.3-11.1)
[2021-12-01] MEDS: Budesonide/Formoterol 80/4.5 1 PUFF INH IH SCH ×2 (08:07→20:04)
[2021-12-01] MEDS: hydroCHLOROthiazide 25 MG TABLET PO SCH (08:36)
[2021-12-01] MEDS: *HR* HYDROcodone/Acet 10/325 mg TABLET PO PRN (08:36)
[2021-12-01] MEDS: Gabapentin 300 MG CAPSULE PO SCH ×3 (08:36→21:56)
[2021-12-01] MEDS: cilostazoL 100 MG TABLET PO SCH ×2 (08:36→21:56)
[2021-12-01] MEDS: amLODIPine 5 MG TABLET PO SCH (08:36)
[2021-12-01] MEDS: Ascorbic Acid 500 MG TABLET PO SCH ×2 (08:36→16:20)
[2021-12-01] MEDS: Multivit/Ca/Min/Fe/FA 1 TAB TABLET PO SCH (08:37)
[2021-12-01] MEDS: Insulin LISPRO 300 UNITS/3 ML VIAL SUBQ SCH ×4 (08:39→21:56)
[2021-12-01] MEDS: Insulin DETEMIR 100 UNIT/ML X5UNITS SUBQ SCH ×2 (08:42→21:56)
[2021-12-01] MEDS: Fluticasone Propionate Nasal 50 MCG/SPRAY BOTTLE NS SCH (08:44)
[2021-12-01] MEDS ORDERED: Levalbuterol Neb 0.63 MG/3 ML IH PRN (15:39)
[2021-12-01] MEDS ORDERED: carvediloL 6.25 MG TABLET PO SCH (17:00)
[2021-12-01] MEDS: carvediloL 6.25 MG TABLET PO SCH (17:05)
[2021-12-01] MEDS: Apixaban 5 MG TABLET PO SCH (21:55)
[2021-12-02 02:52] LABS: Basophils % 0.1 %; Eosinophils # 0.1 K/mcL (0.0-0.6); Eosinophils % 0.8 %; Hematocrit 24.8 % (35.3-44.9); Lymphocytes # 1.7 K/mcL (0.6-4.6); Lymphocytes % 12.7 %; Mean Corpuscular HGB Conc 32.3 g/dL (31.6-35.5); Mean Corpuscular Hemoglobin 27.3 pg (28.0-33.3); Mean Corpuscular Volume 84.6 fL (83.0-100.0); Mean Platelet Volume 10.7 fL (9.4-12.4); Monocytes # 1.4 K/mcL (0.0-1.3); Monocytes % 10.8 %; Neutrophils # 9.9 K/mcL (1.6-8.9); Platelet Count 286 K/mcL (140-400); Red Blood Count 2.93 M/mcL (3.82-4.97); Red Cell Distribution Width 15.9 % (11.5-14.5); Segmented Neutrophils % 74.6 %; White Blood Count 13.3 K/mcL (4.3-11.1)
[2021-12-02 03:06] LABS: BUN/Creatinine Ratio 27 (6-26); Blood Urea Nitrogen 23 mg/dL (8-23); Calcium 8.4 mg/dL (8.6-10.3); Carbon Dioxide 29 mEq/L (23-29); Chloride 103 mEq/L (98-107); Glucose 157 mg/dL (70-105); Magnesium 1.9 mg/dL (1.6-2.6); Osmolality,Calculated 293 (280-300); Phosphorous 2.7 mg/dL (2.7-4.5); Potassium 3.6 mEq/L (3.5-5.1); Sodium 138 mEq/L (136-145); eGFR For African Americans > 60 (> 60); eGFR For Non-African Americans > 60 (> 60)
[2021-12-02] MEDS: Ipratropium 1 PUFF INHALER IH SCH ×4 (03:53→16:10)
[2021-12-02] MEDS: Insulin LISPRO 300 UNITS/3 ML VIAL SUBQ SCH ×3 (07:33→16:31)
[2021-12-02] MEDS: Budesonide/Formoterol 80/4.5 1 PUFF INH IH SCH (07:52)
[2021-12-02] MEDS: amLODIPine 5 MG TABLET PO SCH (08:26)
[2021-12-02] MEDS: Ascorbic Acid 500 MG TABLET PO SCH (08:26)
[2021-12-02] MEDS: hydroCHLOROthiazide 25 MG TABLET PO SCH (08:27)
[2021-12-02] MEDS: Gabapentin 300 MG CAPSULE PO SCH ×2 (08:27→15:11)
[2021-12-02] MEDS: Apixaban 5 MG TABLET PO SCH (08:27)
[2021-12-02] MEDS: cilostazoL 100 MG TABLET PO SCH (08:28)
[2021-12-02] MEDS: carvediloL 6.25 MG TABLET PO SCH (08:28)
[2021-12-02] MEDS: Multivit/Ca/Min/Fe/FA 1 TAB TABLET PO SCH (08:28)
[2021-12-02] MEDS: Fluticasone Propionate Nasal 50 MCG/SPRAY BOTTLE NS SCH (08:29)
[2021-12-02] MEDS: Insulin DETEMIR 100 UNIT/ML X5UNITS SUBQ SCH (08:37)
[2021-12-02] MEDS: *HR* HYDROcodone/Acet 10/325 mg TABLET PO PRN (10:20)
[2021-12-02 11:58] VITALS: BP 92/52; PULSE 78; TEMP 98.7; O2SAT 97
== END 2021-12-02 17:10 | DRG 521 ==
LOC: 4WAOSI → SUATTDRO 11-19 02:37 → 2ANU 11-19 12:21
PROVIDERS: ADMIT Internal Medicine; ATTEND Internal Medicine

== ENCOUNTER 2022-03-25 06:16 | Observation (INO) ==
[2022-03-25] MEDS ORDERED: Famotidine 20 MG TABLET PO ONE (07:00)
[2022-03-25] MEDS ORDERED: Albuterol 2.5 MG/3 ML NEBULIZER IH ONE (07:03)
[2022-03-25] MEDS ORDERED: *HR* HYDROmorphone PF 0.5 MG/0.5 ML SYRINGE IVP PRN (07:04)
[2022-03-25] MEDS ORDERED: Ondansetron 4 MG/2 ML VIAL IVP PRN ×2 (07:04→13:30)
[2022-03-25] MEDS ORDERED: *HR* FentaNYL (PF) 100 MCG/2 ML VIAL IVP PRN (07:04)
[2022-03-25] MEDS ORDERED: Albuterol 2.5 MG/3 ML NEBULIZER IH PRN (07:04)
[2022-03-25] MEDS ORDERED: Vancomycin 1,000 MG VIAL ONE (07:07)
[2022-03-25] MEDS ORDERED: *HR* Propofol 200 MG/20 ML VIAL IVP ONE (07:07)
[2022-03-25] MEDS ORDERED: Ondansetron 4 MG/2 ML VIAL ONE (07:09)
[2022-03-25] MEDS ORDERED: Lidocaine -MPF 2% 2 ML VIAL ONE (07:09)
[2022-03-25] MEDS ORDERED: *HR* Succinylcholine 200 MG/10 ML VIAL IVP ONE (07:09)
[2022-03-25] MEDS ORDERED: *HR* FentaNYL (PF) 100 MCG/2 ML VIAL ONE (07:11)
[2022-03-25] MEDS ORDERED: CeFAZolin Syr 2,000MG/20 ML 2,000 MG/20 ML SYRINGE IVPB ONE (07:15)
[2022-03-25] MEDS ORDERED: Ringers Solution, Lactated 1,000 ML IVC SCH (07:15)
[2022-03-25] MEDS ORDERED: *HR* Remifentanil 1 MG VIAL IVP ONE (07:18)
[2022-03-25] MEDS ORDERED: Heparin 1,000 UNITS/500 mL 500 ML ONE (07:20)
[2022-03-25] MEDS ORDERED: *HR* Phenylephrine 10 MG/ML VIAL ONE (07:23)
[2022-03-25] MEDS ORDERED: dexmedeTOMIDine in 0.9 % NaCL 80 MCG/20 ML MLS ONE (07:37)
[2022-03-25] MEDS ORDERED: Metoprolol XL (24 HR) Succ 50 MG TAB.ER.24H PO ONE (07:39)
[2022-03-25] MEDS ORDERED: ceFAZolin 1,000 MG, Sodium Chloride IRRigation 1,000 ML IR ONE (07:45)
[2022-03-25] MEDS ORDERED: Polymyxin B Sulfate 500,000 UNIT, Sodium Chloride IRRigation 1,000 ML IR ONE (07:45)
[2022-03-25] MEDS ORDERED: *HR* HYDROMORPHONE 2 MG/ML VIAL ONE (08:18)
[2022-03-25] MEDS ORDERED: Metoprolol XL (24 HR) Succ 50 MG TAB.ER.24H PO SCH (09:00)
[2022-03-25] MEDS ORDERED: Sennosides/Docusate Sodium TABLET PO PRN (13:30)
[2022-03-25] MEDS ORDERED: Acetaminophen 325 MG TABLET PO PRN (13:30)
[2022-03-25] MEDS ORDERED: *HR* HYDROcodone/Acet 10/325 mg TABLET PO PRN (13:30)
[2022-03-25] MEDS ORDERED: Famotidine 20 MG TABLET PO PRN (13:30)
[2022-03-25] MEDS ORDERED: traZODone 50 MG TABLET PO PRN (13:30)
[2022-03-25] MEDS ORDERED: Naloxone 0.4 MG/ML INJ IVP PRN (13:30)
[2022-03-25] MEDS: Gabapentin 300 MG CAPSULE PO SCH ×2 (14:57→20:40)
[2022-03-25] MEDS: Ipratropium 1 PUFF INHALER IH SCH ×2 (15:18→20:04)
[2022-03-25] MEDS: CeFAZolin 2 GM/120 ML BAG IVPB SCH ×2 (16:58→23:53)
[2022-03-25] MEDS: Ascorbic Acid 500 MG TABLET PO SCH (17:01)
[2022-03-25] MEDS: Famotidine 20 MG/2 ML VIAL IVP SCH (17:01)
[2022-03-25 17:02] LABS: BUN/Creatinine Ratio 16 (6-26); Blood Urea Nitrogen 15 mg/dL (8-23); Carbon Dioxide 25 mEq/L (23-29); Chloride 105 mEq/L (98-107); Glucose 175 mg/dL (70-105); Osmolality,Calculated 295 (280-300); Potassium 4.4 mEq/L (3.5-5.1); Sodium 140 mEq/L (136-145); eGFR For African Americans > 60 (> 60); eGFR For Non-African Americans 59 (> 60)
[2022-03-25 17:23] LABS: Basophils % 0.2 %; Hematocrit 36.2 % (35.3-44.9); Hemoglobin 11.6 g/dL (11.5-15.4); Immature Granulocytes % 1.5 % (0-4); Lymphocytes # 0.8 K/mcL (0.6-4.6); Lymphocytes % 6.7 %; Mean Corpuscular Hemoglobin 24.4 pg (28.0-33.3); Mean Corpuscular Volume 76.2 fL (83.0-100.0); Mean Platelet Volume 11.6 fL (9.4-12.4); Monocytes # 0.2 K/mcL (0.0-1.3); Neutrophils # 10.8 K/mcL (1.6-8.9); Platelet Count 175 K/mcL (140-400); Red Blood Count 4.75 M/mcL (3.82-4.97); Red Cell Distribution Width 17.7 % (11.5-14.5); Segmented Neutrophils % 89.6 %
[2022-03-25 18:02] LABS: Platelet Estimate Normal (Normal)
[2022-03-25] MEDS: Ringers Solution, Lactated 1,000 ML IVC SCH (19:35)
[2022-03-25] MEDS: Budesonide/Formoterol 160/4.5 1 PUFF INH IH SCH (20:04)
[2022-03-25] MEDS: cilostazoL 100 MG TABLET PO SCH (20:40)
[2022-03-25] MEDS: Apixaban 5 MG TABLET PO SCH (20:41)
[2022-03-25] MEDS: *HR* OxyCODONE Immed Rel 5 MG TABLET PO PRN (23:53)
[2022-03-26] MEDS: Ipratropium 1 PUFF INHALER IH SCH ×7 (00:07→23:57)
[2022-03-26] MEDS: Ringers Solution, Lactated 1,000 ML IVC SCH ×2 (05:25→18:05)
[2022-03-26] MEDS: *HR* OxyCODONE Immed Rel 5 MG TABLET PO PRN ×2 (05:25→16:47)
[2022-03-26] MEDS: Famotidine 20 MG/2 ML VIAL IVP SCH ×2 (05:25→16:43)
[2022-03-26] MEDS: Tiotropium 10 INH DOSE IH SCH (07:33)
[2022-03-26] MEDS: Budesonide/Formoterol 160/4.5 1 PUFF INH IH SCH ×2 (07:33→21:00)
[2022-03-26] MEDS ORDERED: NON-FORMULARY MEDICATION 1 EACH EACH (Fluticasone/Vilanterol [Breo Ellipta 100-25 Mcg Inh] IH SCH (09:00)
[2022-03-26] MEDS ORDERED: NON-FORMULARY MEDICATION 1 EACH EACH (Fluticasone/Umeclidin/Vilanter [Trelegy Ellipta 100- IH SCH (09:00)
[2022-03-26] MEDS: cilostazoL 100 MG TABLET PO SCH ×2 (09:28→21:28)
[2022-03-26] MEDS: Ondansetron ODT 4 MG TAB.RAPDIS PO SCH (09:28)
[2022-03-26] MEDS: Gabapentin 300 MG CAPSULE PO SCH ×3 (09:29→21:27)
[2022-03-26] MEDS: Metoprolol XL (24 HR) Succ 50 MG TAB.ER.24H PO SCH (09:29)
[2022-03-26] MEDS: hydroCHLOROthiazide 25 MG TABLET PO SCH (09:29)
[2022-03-26] MEDS: Ascorbic Acid 500 MG TABLET PO SCH ×2 (09:29→16:43)
[2022-03-26] MEDS: Apixaban 5 MG TABLET PO SCH ×2 (09:31→21:27)
[2022-03-26] MEDS: amLODIPine 5 MG TABLET PO SCH (09:32)
[2022-03-26] MEDS: Fluticasone Propionate Nasal 50 MCG/SPRAY BOTTLE NS SCH (09:32)
[2022-03-26] MEDS ORDERED: polyethylene glycoL 3350 17 GM POWD.PACK PO PRN (13:52)
[2022-03-27] MEDS: Ipratropium 1 PUFF INHALER IH SCH ×6 (03:30→23:20)
[2022-03-27] MEDS: Famotidine 20 MG/2 ML VIAL IVP SCH ×2 (06:24→17:26)
[2022-03-27] MEDS: Gabapentin 300 MG CAPSULE PO SCH ×3 (08:32→22:05)
[2022-03-27] MEDS: amLODIPine 5 MG TABLET PO SCH (08:32)
[2022-03-27] MEDS: Ascorbic Acid 500 MG TABLET PO SCH ×2 (08:32→17:25)
[2022-03-27] MEDS: Metoprolol XL (24 HR) Succ 50 MG TAB.ER.24H PO SCH (08:32)
[2022-03-27] MEDS: Ondansetron ODT 4 MG TAB.RAPDIS PO SCH (08:33)
[2022-03-27] MEDS: cilostazoL 100 MG TABLET PO SCH ×2 (08:33→22:04)
[2022-03-27] MEDS: Apixaban 5 MG TABLET PO SCH ×2 (08:33→22:05)
[2022-03-27] MEDS: hydroCHLOROthiazide 25 MG TABLET PO SCH (08:34)
[2022-03-27] MEDS: Fluticasone Propionate Nasal 50 MCG/SPRAY BOTTLE NS SCH (08:42)
[2022-03-27] MEDS: Tiotropium 10 INH DOSE IH SCH (08:45)
[2022-03-27] MEDS: Budesonide/Formoterol 160/4.5 1 PUFF INH IH SCH ×2 (08:45→19:58)
[2022-03-27] MEDS: *HR* OxyCODONE Immed Rel 5 MG TABLET PO PRN (08:53)
[2022-03-28] MEDS: Ipratropium 1 PUFF INHALER IH SCH ×3 (03:57→11:26)
[2022-03-28] MEDS: *HR* OxyCODONE Immed Rel 5 MG TABLET PO PRN (04:35)
[2022-03-28] MEDS: Famotidine 20 MG/2 ML VIAL IVP SCH (05:10)
[2022-03-28] MEDS: Budesonide/Formoterol 160/4.5 1 PUFF INH IH SCH (07:34)
[2022-03-28] MEDS: Tiotropium 10 INH DOSE IH SCH (07:35)
[2022-03-28] MEDS: Ascorbic Acid 500 MG TABLET PO SCH (09:42)
[2022-03-28] MEDS: Fluticasone Propionate Nasal 50 MCG/SPRAY BOTTLE NS SCH (09:42)
[2022-03-28] MEDS: Apixaban 5 MG TABLET PO SCH (09:42)
[2022-03-28] MEDS: Gabapentin 300 MG CAPSULE PO SCH ×2 (09:42→16:27)
[2022-03-28] MEDS: cilostazoL 100 MG TABLET PO SCH (09:42)
[2022-03-28] MEDS: hydroCHLOROthiazide 25 MG TABLET PO SCH (09:43)
[2022-03-28] MEDS: Ondansetron ODT 4 MG TAB.RAPDIS PO SCH (09:43)
[2022-03-28] MEDS: Metoprolol XL (24 HR) Succ 50 MG TAB.ER.24H PO SCH (09:43)
[2022-03-28] MEDS: amLODIPine 5 MG TABLET PO SCH (09:44)
[2022-03-28 12:35] LABS: Influenza A PCR Negative (Negative); Influenza B PCR Negative (Negative); Resp. Syncytial Virus PCR Negative (Negative)
[2022-03-28 13:54] LABS: SARS-CoV-2 by PCR (In House) Negative (Negative)
[2022-03-28 15:32] VITALS: BP 113/72; PULSE 74; TEMP 98.5; O2SAT 95
[2022-03-29] MEDS ORDERED: Ergocalciferol (VIT D2) 50,000 UNIT (1.25MG) CAP PO SCH (09:00)
== END 2022-03-28 17:29 ==
LOC: SDCAOSI 06:16 → 4WAOSI 06:16
PROVIDERS: ADMIT Orthopaedic Surgery Orthopaedic Surgery of the Spine; ATTEND Orthopaedic Surgery Orthopaedic Surgery of the Spine

== ENCOUNTER 2022-07-23 12:21 | Inpatient (IN) ==
[2022-07-23] MEDS ORDERED: Naloxone 0.4 MG/ML INJ IVP PRN ×2 (13:52→18:39)
[2022-07-23] MEDS ORDERED: 0.9 % Sodium Chloride 250 ML IVC SCH ×4 (14:15→18:39)
[2022-07-23 14:43] LABS: Basophils % 0.2 %; Hematocrit 29.4 % (35.3-44.9); Hemoglobin 9.3 g/dL (11.5-15.4); Immature Granulocytes % 0.5 % (0-4); Lymphocytes # 1.3 K/mcL (0.6-4.6); Lymphocytes % 7.1 %; Mean Corpuscular HGB Conc 31.6 g/dL (31.6-35.5); Mean Corpuscular Hemoglobin 26.3 pg (28.0-33.3); Mean Corpuscular Volume 83.1 fL (83.0-100.0); Monocytes # 1.3 K/mcL (0.0-1.3); Monocytes % 6.7 %; Neutrophils # 15.8 K/mcL (1.6-8.9); Platelet Count 159 K/mcL (140-400); Red Blood Count 3.54 M/mcL (3.82-4.97); Red Cell Distribution Width 16.5 % (11.5-14.5); Segmented Neutrophils % 85.5 %; White Blood Count 18.5 K/mcL (4.3-11.1)
[2022-07-23 14:50] LABS: INR 1.8; Prothrombin Time 20.1 Seconds (9.4-12.1)
[2022-07-23 14:51] LABS: Heparin anti-factor XA UFH 1.38 IU/mL (0.30-0.70)
[2022-07-23] MEDS ORDERED: Dextrose Gel 15 GM/37.5 ML TUBE PO PRN ×2 (15:04)
[2022-07-23] MEDS ORDERED: *HR* Dextrose 50 % in Water (Syg) 50 ML SYRINGE IVP PRN (15:04)
[2022-07-23] MEDS ORDERED: D5% in Water 1,000 ML IVC PRN (15:04)
[2022-07-23 15:05] LABS: Albumin 2.7 g/dL (3.5-5.7); Albumin/Globulin Ratio 1.7 (1.1-2.2); Bilirubin,Direct 0.1 mg/dL (0.0-0.2); Bilirubin,Indirect 0.4 mg/dL (0.0-1.0); Bilirubin,Total 0.5 mg/dL (0.3-1.0); Calcium 6.4 mg/dL (8.6-10.3); Globulin 1.6 g/dL (2.4-3.5); Magnesium 1.3 mg/dL (1.6-2.6); Potassium 2.7 mEq/L (3.5-5.1); Total Protein 4.3 g/dL (6.4-8.9)
[2022-07-23] MEDS ORDERED: *HR* FentaNYL (PF) 100 MCG/2 ML VIAL ONE ×2 (15:09→17:44)
[2022-07-23] MEDS ORDERED: *HR* Propofol 200 MG/20 ML VIAL IVP ONE (15:09)
[2022-07-23] MEDS ORDERED: Lidocaine -MPF 2% 5 ML VIAL ONE (15:11)
[2022-07-23] MEDS ORDERED: Ondansetron 4 MG/2 ML VIAL ONE (15:11)
[2022-07-23] MEDS ORDERED: Lidocaine HCL 4 ML Topical Solution (Laryng-O-Jet Kit Sterile Pak) TP ONE (15:11)
[2022-07-23] MEDS ORDERED: *HR* Rocuronium Bromide 50 MG/5 ML VIAL ONE ×2 (15:11→16:27)
[2022-07-23] MEDS ORDERED: Heparin 1,000 UNITS/500 mL 500 ML ONE (15:20)
[2022-07-23] MEDS ORDERED: EPHEDrine sulfate 50 MG/10 ML VIAL IVP ONE (15:53)
[2022-07-23] MEDS ORDERED: 0.9 % Sodium Chloride Mini Bag 0 ML ONE (16:00)
[2022-07-23] MEDS ORDERED: Vancomycin 1,000 MG VIAL ONE (16:01)
[2022-07-23] MEDS ORDERED: Albumin Human 5% 25.0 GM/500 ML IV.SOLN ONE (17:05)
[2022-07-23] MEDS ORDERED: Sugammadex Sodium 200 MG/2 ML VIAL IV ONE (17:39)
[2022-07-23] MEDS ORDERED: Insulin LISPRO 300 UNITS/3 ML VIAL SUBQ SCH (18:00)
[2022-07-23] MEDS ORDERED: *HR* Metoprolol 5 MG/5 ML VIAL IVP PRN (18:58)
[2022-07-23] MEDS: *HR* FentaNYL (PF) 100 MCG/2 ML VIAL IVP PRN (19:39)
[2022-07-23] MEDS: Piperacillin/Tazobactam 3.375 GM in 0.9 % Sodium Chloride Mini Bag 100 ML IVPB SCH (19:44)
[2022-07-23 20:02] LABS: VBG Ionized Calcium 1.09 mmol/L (1.15-1.35)
[2022-07-23 20:17] LABS: Calcium 8.3 mg/dL (8.6-10.3); Magnesium 1.4 mg/dL (1.6-2.6); Phosphorous 2.6 mg/dL (2.7-4.5); Potassium 3.2 mEq/L (3.5-5.1)
[2022-07-23] MEDS ORDERED: Potassium Phosphate 44 MEQ in 0.9 % Sodium Chloride 250 ML IVPB ONE (20:31)
[2022-07-23] MEDS ORDERED: Piperacillin/Tazobactam 3.375 GM in 0.9 % Sodium Chloride Mini Bag 100 ML IVPB SCH (21:00)
[2022-07-23] MEDS ORDERED: *HR* Metoprolol 5 MG/5 ML VIAL IVP ONE (21:16)
[2022-07-23] MEDS: Ringers Solution, Lactated 1,000 ML IVC SCH (21:50)
[2022-07-23 22:03] LABS: Hemoglobin 10.6 g/dL (11.5-15.4)
[2022-07-24] MEDS: *HR* Metoprolol 5 MG/5 ML VIAL IVP SCH ×6 (00:04→23:14)
[2022-07-24] MEDS: *HR* FentaNYL (PF) 100 MCG/2 ML VIAL IVP PRN ×2 (04:01→08:19)
[2022-07-24] MEDS: Piperacillin/Tazobactam 3.375 GM in 0.9 % Sodium Chloride Mini Bag 100 ML IVPB SCH ×3 (04:03→20:05)
[2022-07-24 04:04] LABS: Hematocrit 32.9 % (35.3-44.9); Hemoglobin 10.3 g/dL (11.5-15.4); Mean Corpuscular HGB Conc 31.3 g/dL (31.6-35.5); Mean Corpuscular Hemoglobin 25.8 pg (28.0-33.3); Mean Corpuscular Volume 82.5 fL (83.0-100.0); Mean Platelet Volume 11.3 fL (9.4-12.4); Platelet Count 193 K/mcL (140-400); Red Blood Count 3.99 M/mcL (3.82-4.97); Red Cell Distribution Width 16.7 % (11.5-14.5); White Blood Count 18.6 K/mcL (4.3-11.1)
[2022-07-24 04:07] LABS: VBG Ionized Calcium 0.91 mmol/L (1.15-1.35)
[2022-07-24 04:32] LABS: Calcium 7.4 mg/dL (8.6-10.3); Magnesium 1.7 mg/dL (1.6-2.6); Phosphorous 7.2 mg/dL (2.7-4.5)
[2022-07-24 05:35] LABS: Lymphocytes # 1.1 K/mcL (0.6-4.6); Monocytes # 1.1 K/mcL (0.0-1.3); Platelet Estimate Normal (Normal)
[2022-07-24] MEDS: Ringers Solution, Lactated 1,000 ML IVC SCH (05:49)
[2022-07-24] MEDS ORDERED: Magnesium Sulfate 1 GM/102 ML PIGGYBACK IVPB ONE (06:13)
[2022-07-24] MEDS: *HR* Heparin 5,000 UNIT/ML VIAL SQ SCH ×2 (06:24→17:41)
[2022-07-24] MEDS: Calcium Gluconate 1gm/50mL 1 GM/50 ML BAG IVPB SCH ×2 (06:30→07:00)
[2022-07-24] MEDS ORDERED: Acetaminophen IV 500 MG/50 ML BAG IVPB PRN (09:23)
[2022-07-24] MEDS ORDERED: Fluconazole 400 MG/200 ML 400 MG/200 ML BAG IVPB ONE (09:43)
[2022-07-24] MEDS: Ketorolac 30 MG/ML VIAL IVP SCH ×4 (09:56→23:14)
[2022-07-24] MEDS ORDERED: Dextrose Gel 15 GM/37.5 ML TUBE PO PRN ×2 (10:47)
[2022-07-24] MEDS ORDERED: D5% in Water 1,000 ML IVC PRN (10:47)
[2022-07-24] MEDS ORDERED: *HR* Dextrose 50 % in Water (Syg) 50 ML SYRINGE IVP PRN (10:47)
[2022-07-24] MEDS: Pantoprazole 40 MG VIAL IVP SCH (11:17)
[2022-07-24] MEDS: Insulin LISPRO 300 UNITS/3 ML VIAL SUBQ SCH ×4 (12:21→23:15)
[2022-07-24] MEDS: Acetaminophen IV 1,000 MG/100 ML BAG IVPB SCH ×3 (13:20→23:13)
[2022-07-24 13:23] LABS: BUN/Creatinine Ratio 25 (6-26); Blood Urea Nitrogen 16 mg/dL (8-23); Calcium 6.4 mg/dL (8.6-10.3); Carbon Dioxide 21 mEq/L (23-29); Chloride 118 mEq/L (98-107); Glucose 127 mg/dL (70-105); Osmolality,Calculated 299 (280-300); Sodium 143 mEq/L (136-145)
[2022-07-24] MEDS ORDERED: D10% in Water 500 ML IVC PRN (13:33)
[2022-07-24] MEDS ORDERED: Ipratropium/Albuterol Neb 3 ML IH PRN (13:48)
[2022-07-24] MEDS ORDERED: Clinimix E 5%-15% SOLUTION 2,000 ML with MVI, adult with vitamin K 10 ML IVC SCH (17:00)
[2022-07-24] MEDS: Budesonide/Formoterol 160/4.5 1 PUFF INH IH SCH (21:55)
[2022-07-25 03:57] LABS: Basophils % 0.2 %; Eosinophils % 0.1 %; Hematocrit 26.4 % (35.3-44.9); Immature Granulocytes % 0.6 % (0-4); Lymphocytes % 8.6 %; Mean Corpuscular HGB Conc 30.7 g/dL (31.6-35.5); Mean Corpuscular Hemoglobin 26.4 pg (28.0-33.3); Mean Platelet Volume 11.4 fL (9.4-12.4); Monocytes # 0.7 K/mcL (0.0-1.3); Monocytes % 6.1 %; Neutrophils # 10.2 K/mcL (1.6-8.9); Platelet Count 134 K/mcL (140-400); Red Blood Count 3.07 M/mcL (3.82-4.97); Red Cell Distribution Width 17.6 % (11.5-14.5); Segmented Neutrophils % 84.4 %; White Blood Count 12.1 K/mcL (4.3-11.1)
[2022-07-25 04:05] LABS: VBG Ionized Calcium 1.17 mmol/L (1.15-1.35)
[2022-07-25 04:17] LABS: Hemoglobin 8.1 g/dL (11.5-15.4)
[2022-07-25 05:36] LABS: Albumin/Globulin Ratio 1.4 (1.1-2.2); Bilirubin,Direct 0.1 mg/dL (0.0-0.2); Bilirubin,Indirect 0.3 mg/dL (0.0-1.0); Bilirubin,Total 0.4 mg/dL (0.3-1.0); Calcium 8.2 mg/dL (8.6-10.3); Globulin 2.2 g/dL (2.4-3.5); Magnesium 2.2 mg/dL (1.6-2.6); Phosphorous 2.1 mg/dL (2.7-4.5); Potassium 3.6 mEq/L (3.5-5.1); Total Protein 5.2 g/dL (6.4-8.9)
[2022-07-25] MEDS: *HR* Heparin 5,000 UNIT/ML VIAL SQ SCH ×2 (06:39→17:05)
[2022-07-25] MEDS: Ketorolac 30 MG/ML VIAL IVP SCH ×3 (06:39→17:06)
[2022-07-25] MEDS: *HR* Metoprolol 5 MG/5 ML VIAL IVP SCH ×3 (06:40→17:05)
[2022-07-25] MEDS: Piperacillin/Tazobactam 3.375 GM in 0.9 % Sodium Chloride Mini Bag 100 ML IVPB SCH ×2 (06:40→13:04)
[2022-07-25] MEDS: Insulin LISPRO 300 UNITS/3 ML VIAL SUBQ SCH ×5 (06:41→22:02)
[2022-07-25] MEDS: Acetaminophen IV 1,000 MG/100 ML BAG IVPB SCH ×3 (06:47→17:59)
[2022-07-25] MEDS: Budesonide/Formoterol 160/4.5 1 PUFF INH IH SCH ×2 (07:36→22:08)
[2022-07-25] MEDS: Pantoprazole 40 MG VIAL IVP SCH (07:48)
[2022-07-25] MEDS ORDERED: Fluconazole 200 MG/100 ML 200 MG/100 ML BAG IVPB SCH (09:00)
[2022-07-25] MEDS: Ondansetron 4 MG/2 ML VIAL IVP PRN (13:17)
[2022-07-25] MEDS ORDERED: Fluconazole 200 MG/100 ML 200 MG/100 ML BAG IVPB ONE (14:06)
[2022-07-25] MEDS ORDERED: 0.9 % Sodium Chloride 1,000 ML ONE (14:51)
[2022-07-25] MEDS ORDERED: Clinimix E 5%-15% SOLUTION 2,000 ML with MVI, adult with vitamin K 10 ML IVC SCH (17:00)
[2022-07-25] MEDS: Fat Emulsion 250 ML IVPB SCH (17:04)
[2022-07-26] MEDS: Ketorolac 30 MG/ML VIAL IVP SCH ×4 (01:12→17:20)
[2022-07-26] MEDS: Acetaminophen IV 1,000 MG/100 ML BAG IVPB SCH ×4 (01:12→17:20)
[2022-07-26] MEDS: *HR* Metoprolol 5 MG/5 ML VIAL IVP SCH ×2 (01:13→05:20)
[2022-07-26] MEDS: Piperacillin/Tazobactam 3.375 GM in 0.9 % Sodium Chloride Mini Bag 100 ML IVPB SCH ×4 (01:19→21:16)
[2022-07-26] MEDS: Insulin LISPRO 300 UNITS/3 ML VIAL SUBQ SCH ×6 (01:19→21:16)
[2022-07-26] MEDS: *HR* Heparin 5,000 UNIT/ML VIAL SQ SCH ×2 (05:21→17:20)
[2022-07-26 05:50] LABS: Basophils % 0.2 %; Eosinophils # 0.2 K/mcL (0.0-0.6); Eosinophils % 1.9 %; Hematocrit 27.2 % (35.3-44.9); Hemoglobin 8.7 g/dL (11.5-15.4); Immature Granulocytes % 0.3 % (0-4); Lymphocytes # 1.1 K/mcL (0.6-4.6); Lymphocytes % 10.9 %; Mean Corpuscular Hemoglobin 26.3 pg (28.0-33.3); Mean Corpuscular Volume 82.2 fL (83.0-100.0); Mean Platelet Volume 11.5 fL (9.4-12.4); Monocytes # 0.7 K/mcL (0.0-1.3); Monocytes % 7.2 %; Platelet Count 162 K/mcL (140-400); Red Blood Count 3.31 M/mcL (3.82-4.97); Red Cell Distribution Width 16.9 % (11.5-14.5); Segmented Neutrophils % 79.5 %; White Blood Count 10.1 K/mcL (4.3-11.1)
[2022-07-26 06:09] LABS: Calcium 8.3 mg/dL (8.6-10.3); Potassium 3.6 mEq/L (3.5-5.1)
[2022-07-26 06:12] LABS: Magnesium 1.8 mg/dL (1.6-2.6); Phosphorous 2.5 mg/dL (2.7-4.5)
[2022-07-26] MEDS: Budesonide/Formoterol 160/4.5 1 PUFF INH IH SCH ×2 (07:47→21:31)
[2022-07-26] MEDS: Fluconazole 400 MG/200 ML 400 MG/200 ML BAG IVPB SCH (08:10)
[2022-07-26] MEDS: Pantoprazole 40 MG VIAL IVP SCH (08:10)
[2022-07-26] MEDS ORDERED: Sennosides/Docusate Sodium TABLET PO PRN (10:43)
[2022-07-26] MEDS ORDERED: Famotidine 20 MG TABLET PO PRN (10:43)
[2022-07-26] MEDS: Ondansetron 4 MG/2 ML VIAL IVP PRN (11:19)
[2022-07-26] MEDS ORDERED: Metoprolol XL (24 HR) Succ 50 MG TAB.ER.24H PO STA (13:33)
[2022-07-26] MEDS: Gabapentin 300 MG CAPSULE PO SCH ×2 (14:01→21:15)
[2022-07-26] MEDS ORDERED: *HR* Metoprolol 5 MG/5 ML VIAL IVP ONE (15:01)
[2022-07-26 16:20] LABS: Basophils % 0.2 %; Eosinophils # 0.1 K/mcL (0.0-0.6); Eosinophils % 0.6 %; Hematocrit 33.6 % (35.3-44.9); Immature Granulocytes % 0.6 % (0-4); Lymphocytes # 1.1 K/mcL (0.6-4.6); Lymphocytes % 7.6 %; Mean Corpuscular HGB Conc 31.5 g/dL (31.6-35.5); Mean Corpuscular Hemoglobin 25.9 pg (28.0-33.3); Mean Platelet Volume 11.2 fL (9.4-12.4); Monocytes % 6.7 %; Neutrophils # 12.1 K/mcL (1.6-8.9); Platelet Count 210 K/mcL (140-400); Red Cell Distribution Width 16.9 % (11.5-14.5); Segmented Neutrophils % 84.3 %; White Blood Count 14.3 K/mcL (4.3-11.1)
[2022-07-26 16:21] LABS: Hemoglobin 10.6 g/dL (11.5-15.4)
[2022-07-26 16:38] LABS: BUN/Creatinine Ratio 21 (6-26); Blood Urea Nitrogen 14 mg/dL (8-23); Calcium 8.7 mg/dL (8.6-10.3); Carbon Dioxide 26 mEq/L (23-29); Chloride 105 mEq/L (98-107); Glucose 194 mg/dL (70-105); Osmolality,Calculated 296 (280-300); Potassium 3.5 mEq/L (3.5-5.1); Sodium 140 mEq/L (136-145)
[2022-07-26] MEDS ORDERED: Clinimix E 5%-15% SOLUTION 2,000 ML with MVI, adult with vitamin K 10 ML IVC SCH (17:00)
[2022-07-27] MEDS: Ketorolac 30 MG/ML VIAL IVP SCH ×2 (01:23→05:34)
[2022-07-27] MEDS: Insulin LISPRO 300 UNITS/3 ML VIAL SUBQ SCH ×6 (01:24→20:19)
[2022-07-27] MEDS: Acetaminophen IV 1,000 MG/100 ML BAG IVPB SCH ×4 (01:25→17:15)
[2022-07-27] MEDS: *HR* Heparin 5,000 UNIT/ML VIAL SQ SCH ×2 (05:33→17:15)
[2022-07-27] MEDS: Piperacillin/Tazobactam 3.375 GM in 0.9 % Sodium Chloride Mini Bag 100 ML IVPB SCH ×3 (05:35→20:18)
[2022-07-27 06:13] LABS: Alanine Aminotransferase 12 Units/L (7-52); Albumin 3.4 g/dL (3.5-5.7); Albumin/Globulin Ratio 1.2 (1.1-2.2); Alkaline Phosphatase 63 Units/L (34-104); Aspartate Amino Transferase 13 Units/L (13-39); BUN/Creatinine Ratio 26 (6-26); Bilirubin,Total 0.5 mg/dL (0.3-1.0); Blood Urea Nitrogen 17 mg/dL (8-23); Carbon Dioxide 30 mEq/L (23-29); Chloride 103 mEq/L (98-107); Globulin 2.8 g/dL (2.4-3.5); Glucose 184 mg/dL (70-105); Magnesium 1.7 mg/dL (1.6-2.6); Osmolality,Calculated 296 (280-300); Phosphorous 2.3 mg/dL (2.7-4.5); Potassium 3.1 mEq/L (3.5-5.1); Sodium 140 mEq/L (136-145); Total Protein 6.2 g/dL (6.4-8.9)
[2022-07-27] MEDS ORDERED: Tiotropium 10 INH DOSE IH ONE (08:00)
[2022-07-27] MEDS: Tiotropium 10 INH DOSE IH SCH (08:02)
[2022-07-27] MEDS: Budesonide/Formoterol 160/4.5 1 PUFF INH IH SCH ×2 (08:02→19:44)
[2022-07-27] MEDS ORDERED: NON-FORMULARY MEDICATION 1 EACH EACH (Fluticasone/Umeclidin/Vilanter [Trelegy Ellipta 100- IH SCH (09:00)
[2022-07-27] MEDS ORDERED: Metoprolol XL (24 HR) Succ 50 MG TAB.ER.24H PO SCH (09:00)
[2022-07-27] MEDS: Cholecalciferol (D-3) 1,000 UNIT (25MCG) TABLET PO SCH (09:12)
[2022-07-27] MEDS: Gabapentin 300 MG CAPSULE PO SCH ×3 (09:12→20:19)
[2022-07-27] MEDS: Pantoprazole 40 MG VIAL IVP SCH (09:13)
[2022-07-27] MEDS: Fluconazole 400 MG/200 ML 400 MG/200 ML BAG IVPB SCH (09:13)
[2022-07-27] MEDS: Ondansetron 4 MG/2 ML VIAL IVP PRN (09:16)
[2022-07-27] MEDS ORDERED: Potassium Phosphate 44 MEQ in 0.9 % Sodium Chloride 250 ML IVPB ONE (09:47)
[2022-07-27] MEDS ORDERED: Clinimix E 5%-15% SOLUTION 2,000 ML with MVI, adult with vitamin K 10 ML IVC SCH (17:00)
[2022-07-28] MEDS: Insulin LISPRO 300 UNITS/3 ML VIAL SUBQ SCH ×6 (01:28→20:31)
[2022-07-28] MEDS: Acetaminophen IV 1,000 MG/100 ML BAG IVPB SCH ×4 (01:29→17:00)
[2022-07-28] MEDS ORDERED: *HR* Metoprolol 5 MG/5 ML VIAL IVP ONE ×2 (02:27→07:52)
[2022-07-28] MEDS: Piperacillin/Tazobactam 3.375 GM in 0.9 % Sodium Chloride Mini Bag 100 ML IVPB SCH ×3 (04:19→20:26)
[2022-07-28 04:55] LABS: Basophils % 0.3 %; Eosinophils # 0.1 K/mcL (0.0-0.6); Eosinophils % 0.5 %; Hematocrit 35.8 % (35.3-44.9); Hemoglobin 11.8 g/dL (11.5-15.4); Immature Granulocytes % 0.5 % (0-4); Lymphocytes # 1.9 K/mcL (0.6-4.6); Lymphocytes % 12.9 %; Mean Corpuscular Hemoglobin 26.6 pg (28.0-33.3); Mean Corpuscular Volume 80.6 fL (83.0-100.0); Mean Platelet Volume 11.2 fL (9.4-12.4); Monocytes # 1.8 K/mcL (0.0-1.3); Monocytes % 12.5 %; Neutrophils # 10.6 K/mcL (1.6-8.9); Platelet Count 307 K/mcL (140-400); Red Blood Count 4.44 M/mcL (3.82-4.97); Red Cell Distribution Width 16.7 % (11.5-14.5); Segmented Neutrophils % 73.3 %; White Blood Count 14.5 K/mcL (4.3-11.1)
[2022-07-28 05:14] LABS: Albumin 3.3 g/dL (3.5-5.7); Albumin/Globulin Ratio 1.2 (1.1-2.2); Bilirubin,Total 0.6 mg/dL (0.3-1.0); Calcium 9.2 mg/dL (8.6-10.3); Globulin 2.8 g/dL (2.4-3.5); Magnesium 1.7 mg/dL (1.6-2.6); Phosphorous 2.8 mg/dL (2.7-4.5); Potassium 3.2 mEq/L (3.5-5.1); Total Protein 6.1 g/dL (6.4-8.9)
[2022-07-28] MEDS: *HR* Heparin 5,000 UNIT/ML VIAL SQ SCH ×2 (06:50→16:58)
[2022-07-28] MEDS: Tiotropium 10 INH DOSE IH SCH (07:32)
[2022-07-28] MEDS: Budesonide/Formoterol 160/4.5 1 PUFF INH IH SCH ×2 (07:32→19:46)
[2022-07-28] MEDS: Cholecalciferol (D-3) 1,000 UNIT (25MCG) TABLET PO SCH (08:06)
[2022-07-28] MEDS: Gabapentin 300 MG CAPSULE PO SCH ×3 (08:06→20:27)
[2022-07-28] MEDS: Fluconazole 400 MG/200 ML 400 MG/200 ML BAG IVPB SCH (08:06)
[2022-07-28] MEDS: Pantoprazole 40 MG VIAL IVP SCH (08:06)
[2022-07-28] MEDS: Fat Emulsion 250 ML IVPB SCH (16:59)
[2022-07-28] MEDS ORDERED: Clinimix E 5%-15% SOLUTION 2,000 ML with MVI, adult with vitamin K 10 ML IVC SCH (17:00)
[2022-07-29 07:22] LABS: Basophils # 0.1 K/mcL (0.0-0.2); Basophils % 0.4 %; Eosinophils # 0.2 K/mcL (0.0-0.6); Eosinophils % 1.2 %; Hematocrit 31.6 % (35.3-44.9); Hemoglobin 10.4 g/dL (11.5-15.4); Immature Granulocytes % 0.5 % (0-4); Lymphocytes # 1.6 K/mcL (0.6-4.6); Lymphocytes % 11.7 %; Mean Corpuscular HGB Conc 32.9 g/dL (31.6-35.5); Mean Corpuscular Hemoglobin 26.4 pg (28.0-33.3); Mean Corpuscular Volume 80.2 fL (83.0-100.0); Mean Platelet Volume 11.1 fL (9.4-12.4); Monocytes # 1.7 K/mcL (0.0-1.3); Monocytes % 12.8 %; Neutrophils # 9.8 K/mcL (1.6-8.9); Platelet Count 327 K/mcL (140-400); Red Blood Count 3.94 M/mcL (3.82-4.97); Red Cell Distribution Width 16.6 % (11.5-14.5); Segmented Neutrophils % 73.4 %; White Blood Count 13.4 K/mcL (4.3-11.1)
[2022-07-29 07:37] LABS: Albumin 2.9 g/dL (3.5-5.7); Albumin/Globulin Ratio 1.1 (1.1-2.2); Bilirubin,Total 0.4 mg/dL (0.3-1.0); Calcium 8.2 mg/dL (8.6-10.3); Globulin 2.7 g/dL (2.4-3.5); Potassium 3.5 mEq/L (3.5-5.1); Total Protein 5.6 g/dL (6.4-8.9)
[2022-07-29 07:38] LABS: Magnesium 1.9 mg/dL (1.6-2.6); Phosphorous 3.2 mg/dL (2.7-4.5)
[2022-07-29] MEDS: Tiotropium 10 INH DOSE IH SCH (07:41)
[2022-07-29] MEDS: Budesonide/Formoterol 160/4.5 1 PUFF INH IH SCH ×2 (07:41→23:19)
[2022-07-29] MEDS: Insulin LISPRO 300 UNITS/3 ML VIAL SUBQ SCH ×7 (09:19→23:53)
[2022-07-29] MEDS: Acetaminophen IV 1,000 MG/100 ML BAG IVPB SCH ×4 (09:20→15:04)
[2022-07-29] MEDS: Piperacillin/Tazobactam 3.375 GM in 0.9 % Sodium Chloride Mini Bag 100 ML IVPB SCH ×3 (09:21→21:06)
[2022-07-29] MEDS: *HR* Heparin 5,000 UNIT/ML VIAL SQ SCH ×2 (09:21→17:56)
[2022-07-29] MEDS: Fluconazole 400 MG/200 ML 400 MG/200 ML BAG IVPB SCH (09:22)
[2022-07-29] MEDS: Gabapentin 300 MG CAPSULE PO SCH ×3 (09:23→21:06)
[2022-07-29] MEDS: hydroCHLOROthiazide 25 MG TABLET PO SCH (09:24)
[2022-07-29] MEDS: Cholecalciferol (D-3) 1,000 UNIT (25MCG) TABLET PO SCH (09:26)
[2022-07-29] MEDS: amLODIPine 5 MG TABLET PO SCH (09:26)
[2022-07-29] MEDS: Pantoprazole 40 MG VIAL IVP SCH (09:27)
[2022-07-29] MEDS: Insulin DETEMIR 100 UNIT/ML X5UNITS SUBQ SCH (21:05)
[2022-07-30] MEDS: Acetaminophen IV 1,000 MG/100 ML BAG IVPB SCH ×4 (00:01→17:33)
[2022-07-30 01:32] LABS: Basophils # 0.1 K/mcL (0.0-0.2); Basophils % 0.4 %; Eosinophils # 0.3 K/mcL (0.0-0.6); Hematocrit 30.8 % (35.3-44.9); Hemoglobin 10.2 g/dL (11.5-15.4); Immature Granulocytes % 0.9 % (0-4); Lymphocytes # 2.2 K/mcL (0.6-4.6); Lymphocytes % 15.9 %; Mean Corpuscular HGB Conc 33.1 g/dL (31.6-35.5); Mean Corpuscular Hemoglobin 26.5 pg (28.0-33.3); Mean Platelet Volume 10.4 fL (9.4-12.4); Monocytes # 1.6 K/mcL (0.0-1.3); Monocytes % 11.5 %; Neutrophils # 9.3 K/mcL (1.6-8.9); Platelet Count 321 K/mcL (140-400); Red Blood Count 3.85 M/mcL (3.82-4.97); Red Cell Distribution Width 16.7 % (11.5-14.5); Segmented Neutrophils % 69.3 %; White Blood Count 13.5 K/mcL (4.3-11.1)
[2022-07-30 01:55] LABS: Calcium 9.6 mg/dL (8.6-10.3); Magnesium 1.9 mg/dL (1.6-2.6); Phosphorous 4.4 mg/dL (2.7-4.5); Potassium 4.1 mEq/L (3.5-5.1)
[2022-07-30] MEDS: Insulin LISPRO 300 UNITS/3 ML VIAL SUBQ SCH ×5 (05:06→21:07)
[2022-07-30] MEDS: Piperacillin/Tazobactam 3.375 GM in 0.9 % Sodium Chloride Mini Bag 100 ML IVPB SCH ×3 (05:07→23:08)
[2022-07-30] MEDS: *HR* Heparin 5,000 UNIT/ML VIAL SQ SCH ×2 (05:08→17:33)
[2022-07-30] MEDS: Tiotropium 10 INH DOSE IH SCH (07:58)
[2022-07-30] MEDS: Budesonide/Formoterol 160/4.5 1 PUFF INH IH SCH ×2 (07:58→20:52)
[2022-07-30] MEDS: Gabapentin 300 MG CAPSULE PO SCH ×3 (08:48→21:24)
[2022-07-30] MEDS: Cholecalciferol (D-3) 1,000 UNIT (25MCG) TABLET PO SCH (08:48)
[2022-07-30] MEDS: hydroCHLOROthiazide 25 MG TABLET PO SCH (08:49)
[2022-07-30] MEDS: Metoclopramide 20 MG in 0.9 % Sodium Chloride 50 ML IVPB SCH ×2 (08:49→17:57)
[2022-07-30] MEDS: amLODIPine 5 MG TABLET PO SCH (08:49)
[2022-07-30] MEDS: Fluconazole 400 MG/200 ML 400 MG/200 ML BAG IVPB SCH (08:50)
[2022-07-30] MEDS: Pantoprazole 40 MG VIAL IVP SCH (09:06)
[2022-07-30] MEDS ORDERED: Clinimix E 5%-15% SOLUTION 2,000 ML with MVI, adult with vitamin K 10 ML IVC SCH (17:00)
[2022-07-30] MEDS: Fat Emulsion 250 ML IVPB SCH (17:41)
[2022-07-30] MEDS: Insulin DETEMIR 100 UNIT/ML X5UNITS SUBQ SCH (21:07)
[2022-07-31] MEDS: Acetaminophen IV 1,000 MG/100 ML BAG IVPB SCH ×4 (00:09→17:28)
[2022-07-31] MEDS: Metoclopramide 20 MG in 0.9 % Sodium Chloride 50 ML IVPB SCH ×2 (00:09→09:34)
[2022-07-31] MEDS: Insulin LISPRO 300 UNITS/3 ML VIAL SUBQ SCH ×6 (01:32→21:20)
[2022-07-31 03:56] LABS: Basophils % 0.3 %; Eosinophils # 0.3 K/mcL (0.0-0.6); Eosinophils % 2.7 %; Hematocrit 30.1 % (35.3-44.9); Hemoglobin 9.7 g/dL (11.5-15.4); Immature Granulocytes % 1.1 % (0-4); Lymphocytes # 2.1 K/mcL (0.6-4.6); Mean Corpuscular HGB Conc 32.2 g/dL (31.6-35.5); Mean Corpuscular Hemoglobin 26.3 pg (28.0-33.3); Mean Corpuscular Volume 81.6 fL (83.0-100.0); Mean Platelet Volume 11.2 fL (9.4-12.4); Monocytes # 1.3 K/mcL (0.0-1.3); Monocytes % 10.8 %; Neutrophils # 7.9 K/mcL (1.6-8.9); Platelet Count 361 K/mcL (140-400); Red Blood Count 3.69 M/mcL (3.82-4.97); Red Cell Distribution Width 17.3 % (11.5-14.5); Segmented Neutrophils % 67.1 %; White Blood Count 11.8 K/mcL (4.3-11.1)
[2022-07-31 04:13] LABS: Albumin 3.1 g/dL (3.5-5.7); Albumin/Globulin Ratio 1.1 (1.1-2.2); Bilirubin,Total 0.6 mg/dL (0.3-1.0); Calcium 9.1 mg/dL (8.6-10.3); Globulin 2.8 g/dL (2.4-3.5); Magnesium 1.9 mg/dL (1.6-2.6); Phosphorous 3.7 mg/dL (2.7-4.5); Potassium 3.5 mEq/L (3.5-5.1); Total Protein 5.9 g/dL (6.4-8.9)
[2022-07-31] MEDS: *HR* Heparin 5,000 UNIT/ML VIAL SQ SCH ×2 (05:31→17:28)
[2022-07-31] MEDS: Piperacillin/Tazobactam 3.375 GM in 0.9 % Sodium Chloride Mini Bag 100 ML IVPB SCH ×3 (06:02→21:44)
[2022-07-31] MEDS: Budesonide/Formoterol 160/4.5 1 PUFF INH IH SCH ×2 (08:01→21:17)
[2022-07-31] MEDS: Tiotropium 10 INH DOSE IH SCH (08:03)
[2022-07-31] MEDS: Fluconazole 400 MG/200 ML 400 MG/200 ML BAG IVPB SCH (09:33)
[2022-07-31] MEDS: Cholecalciferol (D-3) 1,000 UNIT (25MCG) TABLET PO SCH (09:34)
[2022-07-31] MEDS: Pantoprazole 40 MG VIAL IVP SCH (09:34)
[2022-07-31] MEDS: Gabapentin 300 MG CAPSULE PO SCH ×3 (09:35→20:47)
[2022-07-31] MEDS: hydroCHLOROthiazide 25 MG TABLET PO SCH (09:35)
[2022-07-31] MEDS: amLODIPine 5 MG TABLET PO SCH (09:35)
[2022-07-31] MEDS: Ondansetron 4 MG/2 ML VIAL IVP PRN (11:57)
[2022-07-31] MEDS ORDERED: Clinimix E 5%-20% SOLUTION 2,000 ML with MVI, adult with vitamin K 10 ML, ZN/CU/MN/SE... IVC SCH (17:00)
[2022-07-31] MEDS: Insulin DETEMIR 100 UNIT/ML X5UNITS SUBQ SCH (21:21)
[2022-08-01] MEDS: Acetaminophen IV 1,000 MG/100 ML BAG IVPB SCH ×5 (00:02→23:41)
[2022-08-01] MEDS: Insulin LISPRO 300 UNITS/3 ML VIAL SUBQ SCH ×7 (00:08→23:40)
[2022-08-01] MEDS: Piperacillin/Tazobactam 3.375 GM in 0.9 % Sodium Chloride Mini Bag 100 ML IVPB SCH ×3 (04:07→23:41)
[2022-08-01] MEDS: *HR* Heparin 5,000 UNIT/ML VIAL SQ SCH ×2 (05:07→16:36)
[2022-08-01 07:08] LABS: Basophils % 0.3 %; Eosinophils # 0.3 K/mcL (0.0-0.6); Eosinophils % 2.6 %; Hematocrit 27.6 % (35.3-44.9); Hemoglobin 8.9 g/dL (11.5-15.4); Immature Granulocytes % 0.8 % (0-4); Lymphocytes # 1.7 K/mcL (0.6-4.6); Mean Corpuscular HGB Conc 32.2 g/dL (31.6-35.5); Mean Corpuscular Hemoglobin 26.3 pg (28.0-33.3); Mean Platelet Volume 10.9 fL (9.4-12.4); Monocytes % 9.3 %; Neutrophils # 7.5 K/mcL (1.6-8.9); Platelet Count 359 K/mcL (140-400); Red Blood Count 3.39 M/mcL (3.82-4.97); Red Cell Distribution Width 17.2 % (11.5-14.5); White Blood Count 10.6 K/mcL (4.3-11.1)
[2022-08-01] MEDS: Budesonide/Formoterol 160/4.5 1 PUFF INH IH SCH ×2 (07:36→22:11)
[2022-08-01] MEDS: Tiotropium 10 INH DOSE IH SCH (07:36)
[2022-08-01 07:50] LABS: Mean Corpuscular Volume 81.4 fL (83.0-100.0)
[2022-08-01 07:51] LABS: Albumin/Globulin Ratio 1.2 (1.1-2.2); Bilirubin,Total 0.6 mg/dL (0.3-1.0); Calcium 8.6 mg/dL (8.6-10.3); Globulin 2.5 g/dL (2.4-3.5); Magnesium 1.7 mg/dL (1.6-2.6); Phosphorous 2.8 mg/dL (2.7-4.5); Potassium 3.4 mEq/L (3.5-5.1); Total Protein 5.5 g/dL (6.4-8.9)
[2022-08-01] MEDS: Gabapentin 300 MG CAPSULE PO SCH ×3 (09:56→21:11)
[2022-08-01] MEDS: amLODIPine 5 MG TABLET PO SCH (09:57)
[2022-08-01] MEDS: Cholecalciferol (D-3) 1,000 UNIT (25MCG) TABLET PO SCH (09:58)
[2022-08-01] MEDS: hydroCHLOROthiazide 25 MG TABLET PO SCH (09:58)
[2022-08-01] MEDS: Fluconazole 400 MG/200 ML 400 MG/200 ML BAG IVPB SCH (09:58)
[2022-08-01] MEDS: Pantoprazole 40 MG VIAL IVP SCH (09:59)
[2022-08-01] MEDS ORDERED: Clinimix E 5%-20% SOLUTION 2,000 ML with MVI, adult with vitamin K 10 ML, ZN/CU/MN/SE... IVC SCH (17:00)
[2022-08-01] MEDS: Insulin DETEMIR 100 UNIT/ML X5UNITS SUBQ SCH (21:10)
[2022-08-02 05:08] LABS: Basophils # 0.1 K/mcL (0.0-0.2); Basophils % 0.4 %; Eosinophils # 0.3 K/mcL (0.0-0.6); Eosinophils % 2.4 %; Hematocrit 30.8 % (35.3-44.9); Hemoglobin 9.8 g/dL (11.5-15.4); Immature Granulocytes % 0.8 % (0-4); Lymphocytes # 1.8 K/mcL (0.6-4.6); Lymphocytes % 13.6 %; Mean Corpuscular HGB Conc 31.8 g/dL (31.6-35.5); Mean Corpuscular Volume 81.7 fL (83.0-100.0); Mean Platelet Volume 10.9 fL (9.4-12.4); Monocytes # 1.2 K/mcL (0.0-1.3); Monocytes % 9.2 %; Neutrophils # 9.7 K/mcL (1.6-8.9); Platelet Count 429 K/mcL (140-400); Red Blood Count 3.77 M/mcL (3.82-4.97); Red Cell Distribution Width 17.1 % (11.5-14.5); Segmented Neutrophils % 73.6 %; White Blood Count 13.2 K/mcL (4.3-11.1)
[2022-08-02 05:29] LABS: Albumin 3.3 g/dL (3.5-5.7); Albumin/Globulin Ratio 1.1 (1.1-2.2); Bilirubin,Total 0.5 mg/dL (0.3-1.0); Calcium 9.7 mg/dL (8.6-10.3); Magnesium 1.8 mg/dL (1.6-2.6); Phosphorous 2.8 mg/dL (2.7-4.5); Potassium 4.1 mEq/L (3.5-5.1); Total Protein 6.3 g/dL (6.4-8.9)
[2022-08-02] MEDS: Insulin LISPRO 300 UNITS/3 ML VIAL SUBQ SCH ×6 (05:58→23:52)
[2022-08-02] MEDS: Piperacillin/Tazobactam 3.375 GM in 0.9 % Sodium Chloride Mini Bag 100 ML IVPB SCH ×3 (05:59→20:52)
[2022-08-02] MEDS: Acetaminophen IV 1,000 MG/100 ML BAG IVPB SCH ×4 (05:59→23:53)
[2022-08-02] MEDS: *HR* Heparin 5,000 UNIT/ML VIAL SQ SCH ×2 (06:05→17:25)
[2022-08-02] MEDS: Tiotropium 10 INH DOSE IH SCH (07:34)
[2022-08-02] MEDS: Budesonide/Formoterol 160/4.5 1 PUFF INH IH SCH ×2 (07:34→20:12)
[2022-08-02] MEDS: Fluconazole 400 MG/200 ML 400 MG/200 ML BAG IVPB SCH (09:42)
[2022-08-02] MEDS: amLODIPine 5 MG TABLET PO SCH (09:42)
[2022-08-02] MEDS: hydroCHLOROthiazide 25 MG TABLET PO SCH (09:42)
[2022-08-02] MEDS: Gabapentin 300 MG CAPSULE PO SCH ×3 (09:43→20:54)
[2022-08-02] MEDS: Cholecalciferol (D-3) 1,000 UNIT (25MCG) TABLET PO SCH (09:43)
[2022-08-02] MEDS: Pantoprazole 40 MG VIAL IVP SCH (09:43)
[2022-08-02] MEDS ORDERED: Clinimix E 5%-20% SOLUTION 2,000 ML with MVI, adult with vitamin K 10 ML, ZN/CU/MN/SE... IVC SCH (17:00)
[2022-08-02] MEDS: Insulin DETEMIR 100 UNIT/ML X5UNITS SUBQ SCH (20:53)
[2022-08-03 02:39] LABS: Basophils # 0.1 K/mcL (0.0-0.2); Basophils % 0.4 %; Eosinophils # 0.3 K/mcL (0.0-0.6); Eosinophils % 2.4 %; Hematocrit 29.8 % (35.3-44.9); Hemoglobin 9.6 g/dL (11.5-15.4); Mean Corpuscular HGB Conc 32.2 g/dL (31.6-35.5); Mean Corpuscular Hemoglobin 26.6 pg (28.0-33.3); Mean Corpuscular Volume 82.5 fL (83.0-100.0); Mean Platelet Volume 10.6 fL (9.4-12.4); Monocytes # 1.3 K/mcL (0.0-1.3); Monocytes % 9.3 %; Neutrophils # 9.7 K/mcL (1.6-8.9); Platelet Count 407 K/mcL (140-400); Red Blood Count 3.61 M/mcL (3.82-4.97); Red Cell Distribution Width 17.2 % (11.5-14.5); Segmented Neutrophils % 71.9 %; White Blood Count 13.5 K/mcL (4.3-11.1)
[2022-08-03 02:55] LABS: Albumin 3.2 g/dL (3.5-5.7); Albumin/Globulin Ratio 1.2 (1.1-2.2); Bilirubin,Total 0.4 mg/dL (0.3-1.0); Calcium 9.5 mg/dL (8.6-10.3); Globulin 2.7 g/dL (2.4-3.5); Magnesium 1.8 mg/dL (1.6-2.6); Phosphorous 3.2 mg/dL (2.7-4.5); Potassium 4.4 mEq/L (3.5-5.1); Total Protein 5.9 g/dL (6.4-8.9)
[2022-08-03] MEDS: *HR* Heparin 5,000 UNIT/ML VIAL SQ SCH ×2 (06:14→20:08)
[2022-08-03] MEDS: Piperacillin/Tazobactam 3.375 GM in 0.9 % Sodium Chloride Mini Bag 100 ML IVPB SCH ×3 (06:14→21:09)
[2022-08-03] MEDS: Insulin LISPRO 300 UNITS/3 ML VIAL SUBQ SCH ×5 (06:15→21:12)
[2022-08-03] MEDS: Acetaminophen IV 1,000 MG/100 ML BAG IVPB SCH (06:24)
[2022-08-03] MEDS: Tiotropium 10 INH DOSE IH SCH (07:54)
[2022-08-03] MEDS: Budesonide/Formoterol 160/4.5 1 PUFF INH IH SCH ×2 (07:54→22:26)
[2022-08-03] MEDS: Cholecalciferol (D-3) 1,000 UNIT (25MCG) TABLET PO SCH (09:00)
[2022-08-03] MEDS: amLODIPine 5 MG TABLET PO SCH (09:00)
[2022-08-03] MEDS: Gabapentin 300 MG CAPSULE PO SCH ×3 (09:00→21:16)
[2022-08-03] MEDS: hydroCHLOROthiazide 25 MG TABLET PO SCH (09:00)
[2022-08-03] MEDS: Pantoprazole 40 MG VIAL IVP SCH (09:01)
[2022-08-03] MEDS: Fluconazole 400 MG/200 ML 400 MG/200 ML BAG IVPB SCH (09:11)
[2022-08-03] MEDS ORDERED: Clinimix E 5%-20% SOLUTION 2,000 ML with MVI, adult with vitamin K 10 ML, ZN/CU/MN/SE... IVC SCH (17:00)
[2022-08-03] MEDS: Insulin DETEMIR 100 UNIT/ML X5UNITS SUBQ SCH (21:16)
[2022-08-04] MEDS: Insulin LISPRO 300 UNITS/3 ML VIAL SUBQ SCH ×6 (00:40→22:10)
[2022-08-04] MEDS: *HR* Heparin 5,000 UNIT/ML VIAL SQ SCH ×2 (05:00→19:01)
[2022-08-04] MEDS: Piperacillin/Tazobactam 3.375 GM in 0.9 % Sodium Chloride Mini Bag 100 ML IVPB SCH ×3 (05:00→22:08)
[2022-08-04 05:40] LABS: Basophils # 0.1 K/mcL (0.0-0.2); Basophils % 0.5 %; Eosinophils # 0.3 K/mcL (0.0-0.6); Eosinophils % 1.9 %; Hematocrit 30.7 % (35.3-44.9); Hemoglobin 9.9 g/dL (11.5-15.4); Immature Granulocytes % 0.7 % (0-4); Lymphocytes % 11.8 %; Mean Corpuscular HGB Conc 32.2 g/dL (31.6-35.5); Mean Corpuscular Hemoglobin 26.7 pg (28.0-33.3); Mean Corpuscular Volume 82.7 fL (83.0-100.0); Monocytes # 1.4 K/mcL (0.0-1.3); Monocytes % 8.1 %; Neutrophils # 12.8 K/mcL (1.6-8.9); Platelet Count 462 K/mcL (140-400); Red Blood Count 3.71 M/mcL (3.82-4.97); Red Cell Distribution Width 17.4 % (11.5-14.5); White Blood Count 16.6 K/mcL (4.3-11.1)
[2022-08-04 05:59] LABS: Albumin 3.2 g/dL (3.5-5.7); Albumin/Globulin Ratio 1.1 (1.1-2.2); Bilirubin,Total 0.3 mg/dL (0.3-1.0); Calcium 9.7 mg/dL (8.6-10.3); Globulin 2.9 g/dL (2.4-3.5); Magnesium 1.9 mg/dL (1.6-2.6); Phosphorous 3.5 mg/dL (2.7-4.5); Potassium 4.2 mEq/L (3.5-5.1); Total Protein 6.1 g/dL (6.4-8.9)
[2022-08-04] MEDS: Budesonide/Formoterol 160/4.5 1 PUFF INH IH SCH ×2 (07:50→20:51)
[2022-08-04] MEDS: Tiotropium 10 INH DOSE IH SCH (07:50)
[2022-08-04] MEDS: Pantoprazole 40 MG VIAL IVP SCH (08:24)
[2022-08-04] MEDS: amLODIPine 5 MG TABLET PO SCH (08:24)
[2022-08-04] MEDS: Gabapentin 300 MG CAPSULE PO SCH ×3 (08:24→22:09)
[2022-08-04] MEDS: Cholecalciferol (D-3) 1,000 UNIT (25MCG) TABLET PO SCH (08:24)
[2022-08-04] MEDS: hydroCHLOROthiazide 25 MG TABLET PO SCH (08:25)
[2022-08-04] MEDS: Fluconazole 400 MG/200 ML 400 MG/200 ML BAG IVPB SCH (08:25)
[2022-08-04 09:51] LABS: Bilirubin,Urine Negative (Negative); Blood,Urine Negative (Negative); Clarity,Urine Clear (Clear); Color,Urine Light-Yellow (Yellow); Glucose,Urine (UA) Normal (Normal); Ketones,Urine Negative (Negative); Leukocyte Esterase,Urine Negative (Negative); Nitrite,Urine Negative (Negative); PH,Urine 6.5 pH Units (5.0-8.0); Protein,Urine Negative (Neg-Trace); Specific Gravity,Urine 1.017 (1.010-1.025); Urobilinogen,Urine Normal (Normal)
[2022-08-04] MEDS ORDERED: Clinimix E 5%-20% SOLUTION 2,000 ML with MVI, adult with vitamin K 10 ML, ZN/CU/MN/SE... IVC SCH (17:00)
[2022-08-04] MEDS: traZODone 50 MG TABLET PO PRN (22:08)
[2022-08-04] MEDS: Insulin DETEMIR 100 UNIT/ML X5UNITS SUBQ SCH (22:10)
[2022-08-05] MEDS: Insulin LISPRO 300 UNITS/3 ML VIAL SUBQ SCH ×6 (00:25→20:54)
[2022-08-05] MEDS: *HR* Heparin 5,000 UNIT/ML VIAL SQ SCH (06:45)
[2022-08-05] MEDS: Piperacillin/Tazobactam 3.375 GM in 0.9 % Sodium Chloride Mini Bag 100 ML IVPB SCH ×3 (06:46→20:52)
[2022-08-05 07:14] LABS: Basophils # 0.1 K/mcL (0.0-0.2); Basophils % 0.6 %; Eosinophils # 0.3 K/mcL (0.0-0.6); Eosinophils % 2.4 %; Hematocrit 30.8 % (35.3-44.9); Immature Granulocytes % 0.6 % (0-4); Lymphocytes # 1.7 K/mcL (0.6-4.6); Lymphocytes % 12.3 %; Mean Corpuscular HGB Conc 32.5 g/dL (31.6-35.5); Mean Corpuscular Hemoglobin 26.6 pg (28.0-33.3); Mean Corpuscular Volume 81.9 fL (83.0-100.0); Mean Platelet Volume 10.6 fL (9.4-12.4); Monocytes # 1.3 K/mcL (0.0-1.3); Monocytes % 9.4 %; Neutrophils # 10.2 K/mcL (1.6-8.9); Platelet Count 476 K/mcL (140-400); Red Blood Count 3.76 M/mcL (3.82-4.97); Red Cell Distribution Width 17.7 % (11.5-14.5); Segmented Neutrophils % 74.7 %; White Blood Count 13.6 K/mcL (4.3-11.1)
[2022-08-05 07:31] LABS: Albumin 3.4 g/dL (3.5-5.7); Albumin/Globulin Ratio 1.2 (1.1-2.2); Bilirubin,Total 0.3 mg/dL (0.3-1.0); Calcium 9.7 mg/dL (8.6-10.3); Globulin 2.8 g/dL (2.4-3.5); Magnesium 1.9 mg/dL (1.6-2.6); Phosphorous 3.6 mg/dL (2.7-4.5); Potassium 4.5 mEq/L (3.5-5.1); Total Protein 6.2 g/dL (6.4-8.9)
[2022-08-05] MEDS ORDERED: Sennosides/Docusate Sodium TABLET PO PRN (08:42)
[2022-08-05] MEDS: Pantoprazole 40 MG VIAL IVP SCH (08:54)
[2022-08-05] MEDS: Gabapentin 300 MG CAPSULE PO SCH ×3 (08:54→20:50)
[2022-08-05] MEDS: Fluconazole 400 MG/200 ML 400 MG/200 ML BAG IVPB SCH (08:54)
[2022-08-05] MEDS: Cholecalciferol (D-3) 1,000 UNIT (25MCG) TABLET PO SCH (08:54)
[2022-08-05] MEDS: amLODIPine 5 MG TABLET PO SCH (08:55)
[2022-08-05] MEDS: hydroCHLOROthiazide 25 MG TABLET PO SCH (08:55)
[2022-08-05] MEDS: Tiotropium 10 INH DOSE IH SCH (10:02)
[2022-08-05] MEDS: Budesonide/Formoterol 160/4.5 1 PUFF INH IH SCH ×2 (10:02→20:01)
[2022-08-05] MEDS: MOM Conc 10 ML UD.LIQ PO SCH (12:07)
[2022-08-05] MEDS ORDERED: Clinimix E 5%-20% SOLUTION 2,000 ML with MVI, adult with vitamin K 10 ML, ZN/CU/MN/SE... IVC SCH (17:00)
[2022-08-05] MEDS: Apixaban 5 MG TABLET PO SCH (20:51)
[2022-08-05] MEDS: Insulin DETEMIR 100 UNIT/ML X5UNITS SUBQ SCH (20:53)
[2022-08-06] MEDS: traZODone 50 MG TABLET PO PRN (01:32)
[2022-08-06] MEDS: Insulin LISPRO 300 UNITS/3 ML VIAL SUBQ SCH ×5 (01:32→16:41)
[2022-08-06] MEDS: Piperacillin/Tazobactam 3.375 GM in 0.9 % Sodium Chloride Mini Bag 100 ML IVPB SCH ×3 (04:49→20:30)
[2022-08-06] MEDS: Tiotropium 10 INH DOSE IH SCH (07:26)
[2022-08-06] MEDS: Budesonide/Formoterol 160/4.5 1 PUFF INH IH SCH ×2 (07:27→22:17)
[2022-08-06] MEDS: Fluconazole 400 MG/200 ML 400 MG/200 ML BAG IVPB SCH (08:31)
[2022-08-06] MEDS: MOM Conc 10 ML UD.LIQ PO SCH (08:31)
[2022-08-06] MEDS: hydroCHLOROthiazide 25 MG TABLET PO SCH (08:32)
[2022-08-06] MEDS: Cholecalciferol (D-3) 1,000 UNIT (25MCG) TABLET PO SCH (08:32)
[2022-08-06] MEDS: amLODIPine 5 MG TABLET PO SCH (08:32)
[2022-08-06] MEDS: Apixaban 5 MG TABLET PO SCH ×2 (08:32→20:25)
[2022-08-06] MEDS: Gabapentin 300 MG CAPSULE PO SCH ×3 (08:32→20:26)
[2022-08-06] MEDS: polyethylene glycoL 3350 17 GM POWD.PACK PO SCH (08:33)
[2022-08-06] MEDS ORDERED: NON-FORMULARY MEDICATION 1 EACH EACH (Pantoprazole Sodium 40 MG Tablet.Dr) PO SCH (09:00)
[2022-08-06 11:58] LABS: Basophils # 0.1 K/mcL (0.0-0.2); Basophils % 0.5 %; Eosinophils # 0.2 K/mcL (0.0-0.6); Eosinophils % 1.7 %; Hematocrit 29.9 % (35.3-44.9); Hemoglobin 9.3 g/dL (11.5-15.4); Immature Granulocytes % 0.4 % (0-4); Lymphocytes # 1.6 K/mcL (0.6-4.6); Lymphocytes % 12.8 %; Mean Corpuscular HGB Conc 31.1 g/dL (31.6-35.5); Mean Corpuscular Hemoglobin 26.1 pg (28.0-33.3); Mean Corpuscular Volume 83.8 fL (83.0-100.0); Mean Platelet Volume 10.5 fL (9.4-12.4); Monocytes # 1.3 K/mcL (0.0-1.3); Monocytes % 10.3 %; Neutrophils # 9.1 K/mcL (1.6-8.9); Platelet Count 452 K/mcL (140-400); Red Blood Count 3.57 M/mcL (3.82-4.97); Red Cell Distribution Width 17.5 % (11.5-14.5); Segmented Neutrophils % 74.3 %; White Blood Count 12.3 K/mcL (4.3-11.1)
[2022-08-06 12:18] LABS: Calcium 9.4 mg/dL (8.6-10.3); Magnesium 1.9 mg/dL (1.6-2.6); Potassium 4.3 mEq/L (3.5-5.1)
[2022-08-06] MEDS ORDERED: Acetaminophen 325 MG TABLET PO PRN (15:16)
[2022-08-06] MEDS ORDERED: Insulin LISPRO 300 UNITS/3 ML VIAL SUBQ SCH ×3 (16:30→21:00)
[2022-08-07] MEDS: Piperacillin/Tazobactam 3.375 GM in 0.9 % Sodium Chloride Mini Bag 100 ML IVPB SCH ×2 (05:34→14:56)
[2022-08-07] MEDS: Tiotropium 10 INH DOSE IH SCH (07:32)
[2022-08-07] MEDS: Budesonide/Formoterol 160/4.5 1 PUFF INH IH SCH (07:33)
[2022-08-07] MEDS: hydroCHLOROthiazide 25 MG TABLET PO SCH (08:51)
[2022-08-07] MEDS: Apixaban 5 MG TABLET PO SCH (08:52)
[2022-08-07] MEDS: Gabapentin 300 MG CAPSULE PO SCH (08:52)
[2022-08-07] MEDS: polyethylene glycoL 3350 17 GM POWD.PACK PO SCH (08:53)
[2022-08-07] MEDS: Cholecalciferol (D-3) 1,000 UNIT (25MCG) TABLET PO SCH (08:53)
[2022-08-07] MEDS: amLODIPine 5 MG TABLET PO SCH (08:53)
[2022-08-07] MEDS: Insulin LISPRO 300 UNITS/3 ML VIAL SUBQ SCH ×2 (08:54→12:20)
[2022-08-07] MEDS ORDERED: Fluconazole 100 MG TABLET PO SCH (09:00)
[2022-08-07] MEDS: MOM Conc 10 ML UD.LIQ PO SCH (09:12)
[2022-08-07 09:21] VITALS: O2SAT 94
[2022-08-07 09:50] LABS: Influenza A PCR Negative (Negative); Influenza B PCR Negative (Negative); Resp. Syncytial Virus PCR Negative (Negative); SARS-CoV-2 by PCR (In House) Negative (Negative)
[2022-08-07 11:35] VITALS: BP 113/78; PULSE 84; TEMP 98.8
== END 2022-08-07 15:01 | DRG 853 ==
LOC: SUATTDRO 13:32 → ICNU 13:32 → 3ANU 07-25 19:37
PROVIDERS: ADMIT Pediatrics; ATTEND Internal Medicine